=== PATIENT | female | born 1960 | race Caucasian/White ===

== ENCOUNTER → 2018-02-19 12:38 | Outpatient (CLI) | payer OTHER, MEDICAID, SELFPAY ==
--- NOTE | 2018-02-19 | DI.RAD.S_ITS ---
PROCEDURE: XR FOOT LT MIN 3V INDICATIONS: LEFT FOOT PAIN, ENLARGED BONE NEAR ANKLE TECHNIQUE: 3 views of the foot were acquired. COMPARISON: None. FINDINGS: Bones: No fractures or dislocations. No suspicious bony lesions. Hammertoe deformities. Medial first sesamoid is bipartite. Joint spaces appear maintained. Plantar spur os calcis. Soft tissues: No tibiotalar joint effusion. Achilles tendon appears normal. IMPRESSION: 1. No acute bony abnormality. 2. Plantar bone spur posterior calcaneus. Dictated by: Lyle Murray M.D. on 02/19/2018 at 13:22 Approved by: Lyle Murray M.D. on 02/19/2018 at 13:24
== END ==
PROVIDERS: PCP Nurse Practitioner Family; Visit Provider Nurse Practitioner Family
DX: M79.672 Pain in left foot (principal); M77.32 Calcaneal spur, left foot
CPT/HCPCS: 73630

== ENCOUNTER 2021-03-05 09:23 | Day surgery (SDC) | payer OTHER, MEDICAID, SELFPAY ==
[2021-03-05 09:32] VITALS: BP 132/84; PULSE 71; RESP 16; TEMP 36.5; O2SAT 99; BMI 25.0
[2021-03-05] MEDS: LACTATED RINGERS 1,000 ML 200 ML IV (09:40)
--- NOTE | 2021-03-05 10:38 | PM.HP.1 ---
History of Present Illness History of Present Illness Date Patient Seen: 03/05/21 Time Patient Seen: 10:38 Chief complaint: SDC Narrative: The patient presents for colorectal sreening. Previous colonoscopy 11 years ago reportedly normal. No personal or family history of colon cancer. On further history denies any recent gastrointestinal symptoms. No nausea, vomiting, abdominal pain, loss of appetite, unexplained weight loss, change in bowel habits, diarrhea, constipation, melena, hematochezia, or bright red blood per rectum. Patient History Medical History (Updated 03/05/21 @ 10:39 by Maicol Mares MD) Excessive daytime sleepiness Obstructive sleep apnea syndrome Snoring Family & Social History Family History Father Sleep apnea Insomnia Dementia Social History: household members none Tobacco & Substance use: Smoking Status Never smoker alcohol intake frequency a few times a week Substance Use Type does not use Meds Home Medications and Allergies Home Medications Medication Instructions Recorded Confirmed Type No Known Home Medications 05/28/20 03/05/21 History Allergies Allergy/AdvReac Type Severity Reaction Status Date / Time No Known Drug Allergies Allergy Verified 03/05/21 09:31 Review of Systems Review of Systems ROS: Yes All systems reviewed with the patient and are negative except as otherwise documented Exam Vital Signs (past 8 hours): - 03/05/21 09:32 Temperature 97.7 F Pulse Rate 71 Respiratory Rate 16 Blood Pressure 132/84 Pulse Oximetry 99 Oxygen Delivery Method Room Air Narrative Exam Narrative: GENERAL-well developed adult female, no acute distress HEENT-no scleral icterus, hearing intact NECK-no JVD, trachea midline CVS- regular rate, no peripheral edema RESP-unlabored respiratory effort, no audible wheezing GI-soft, nontender nondistended MSK-no cyanosis or clubbing, extremities without deformity SKIN-warm, dry NEURO-alert and oriented, no focal deficits PYSCH-Appropriate mood and affect Assessment & Plan Assessment and plan (1) Screening for colon cancer: Status: Acute Assessment & Plan narrative: The patient requires colorectal screening and colonoscopy is recommended. Technical details were discussed. Risks, benefits, alternatives explained. Risks including but not limited to myocardial infarction, aspiration, bleeding, pain, missed lesion, incomplete examination, need for further radiographic studies, colonic perforation, and need for major abdominal surgery were discussed. All questions were answered to their satisfaction, and they are in agreement with this plan.
[2021-03-05] MEDS: MIDAZOLAM 5 MG/5 ML VIAL IV (10:52)
[2021-03-05] MEDS: fentaNYL 250 MCG/5 ML INJ IV (10:52)
--- NOTE | 2021-03-05 11:15 | PM.OP.ENDO ---
Operative Date/Time/Diagnoses Date of procedure: 03/05/21 Time of procedure: 11:15 Pre-op diagnosis: Screening colonoscopy Post-op diagnosis: same Procedure & Clinicians Study performed: Colonoscopy Same procedure as scheduled: Yes Indications: Screening Surgeon: Maicol Mares Procedure Notes Procedure in detail: Medications: Conscious sedation using 5mg IV midazolam and 150 mcg IV of fentanyl The history and physical was performed/updated and the patient is ASA class is 1. The procedure was discussed in detail with the patient. Potential risks complications including infection, bleeding, missed diagnosis, perforation, need for surgery, and were explained. Their questions were answered and informed consent was obtained. Patient was brought to the procedure room and placed standard monitoring equipment. The patient's vital signs were monitored continuously throughout the entire procedure. Prior to starting time-out was performed. The patient was placed in the left lateral recumbent position. Procedural sedation was administered. Examination began with a thorough inspection of the perianal area there was no evidence of fissures, fistulae, external hemorrhoids or cutaneous malignancy. The colonoscopy scope was then placed into the anal canal and was advanced to the cecum, which was identified by the ileocecal valve, the appendiceal orifice and the confluence of the taenia. The scope was then slowly withdrawn examining colon thoroughly in all directions, irrigating it of any residual stool. 1. No masses or polyps 2. Tortuous colon The patient tolerated the procedure well. They will be discharged once criteria are met. The prep was of good/excellent quality. The withdrawl time was 7 minutes. The sedation time was 30 minutes. Specimen(s): none sent Complications: none Impression: Normal colonoscopy Post-procedure Recommendations: Colonscopy in 10 years
[2021-03-05 11:16] VITALS: BP 122/73; PULSE 60; RESP 95; TEMP 36.2
[2021-03-05 11:21] VITALS: BP 118/71; PULSE 60; RESP 10; O2SAT 96
[2021-03-05 11:26] VITALS: BP 118/70; PULSE 59; RESP 10; O2SAT 96
[2021-03-05 11:39] VITALS: BP 122/70; PULSE 60; RESP 12; O2SAT 96
[2021-03-05 11:55] VITALS: BP 122/70; PULSE 65; RESP 16; TEMP 36.6; O2SAT 97
== END 2021-03-05 11:56 | disposition home or self-care (01) ==
PROVIDERS: PCP Internal Medicine; Referring Provider Surgery; Visit Provider Surgery
PROC: 0DJD8ZZ Inspection of Lower Intestinal Tract, Via Natural or Artificial Opening Endoscopic (ICD-10-PCS; CPT 45378; principal; 2021-03-05 10:00)
DX: Z12.11 Encounter for screening for malignant neoplasm of colon (principal); G47.33 Obstructive sleep apnea (adult) (pediatric)
CPT/HCPCS: 45378; 99152; 99153; J2250; J3010

== ENCOUNTER 2021-09-14 13:00 | Outpatient (RCR) | payer OTHER, MEDICAID, SELFPAY ==
--- NOTE | 2021-08-05 11:19 | PT.OIE ---
Current Diagnoses Adhesive capsulitis of left shoulder (08/05/21) Impingement syndrome of left shoulder (08/05/21) Past Medical History (Last Updated 09/02/20 @ 22:19 by ALEXUS Zarate) Excessive daytime sleepiness Obstructive sleep apnea syndrome Snoring Visit Care Team Role Provider Type ALEXUS Kurtz Attending Provider Advanced Accessibility Lift Technician Family Provider Primary Care Provider Referring Provider Specialty: Family Practice Address: [address] [place] [address], [facility] [place], [facility] Email: [email or web address] Physical Therapy Initial Evaluation PT-OP-A Visit Information Start: 08/03/21 07:46 Freq: Status: Active Protocol: Document 08/05/21 09:46 MB (Rec: 08/05/21 10:32 MB [id number]) Out-Patient Physical Therapy Visit Information Visit Information Visit Type Initial Evaluation Visit Note [place] Medicaid 24 combined PT/OT per year Pt goes by Nan Visit Start Time 09:46 Visit Stop Time 10:30 Total Visit Minutes 44 Visit Number 1 Evaluation Information Evaluation Date 08/05/21 PT-OP-B Current Condition Start: 08/03/21 07:46 Freq: Status: Active Protocol: Document 08/05/21 09:46 MB (Rec: 08/05/21 10:32 MB [id number]) Current Condition History of Current Condition Onset Date End of May, beginning of June 2021 Current Complaints Left-sided shoulder pain History of Current Condition Pt states that she is not in the same amount of suffering she was in 10 times ago. She is taking ibuprofen. She is performing wall crawls and pendulums given to her by Rozina Kelly. In late May, pt moved from [place] to [place]. She got a new mattress. Her left shoulder hurt when she was lying on her left side and when she was driving. She had a lot of pain in June. She states it was inside the back of her left shoulder and also in the front. Pt reports 2/10 pain in the triceps area, 6/ 10 superior posterior shoulder pain, 7/10 intrascapular pain and 6/10 midline pain. She is taking ibuprofen 2x/day . She takes 400 mg in the morning and 400 mg before she goes to bed. She has been doing that for 10 days. PMH includes headaches 3-4x/wk , she wakes up with headaches, abdominal surgery to remove ovary, vericose veins. She had a low sleep apnea test and was given a CPAP machine. She didn't notice a change in the headaches and so she stopped using it. The place where she moved is furnished and it is a firm pillow top. She reports the most pain when sleeping at night. She is sleeping on both sides and on her back. She has a regular pillow under her head. She has tried doubling it up. She has a small pillow between her knees. Prior Treatments and Tests No PT for this issue. PT in 1997 d/t severe back pain. It was helpful. Treatment Goals Patient/Caregiver Goals To figure out where the strain is and how to loosen it PT-OP-C Subjective Start: 08/03/21 07:46 Freq: Status: Active Protocol: Document 08/05/21 09:46 MB (Rec: 08/05/21 10:32 MB [id number]) OP-PT Subjective Patient Comments Patient Comments See history of current condition Patient Reported Progress Improving PT-OP-J Posture/Palpation/Skin Start: 08/03/21 07:46 Freq: Status: Active Protocol: Document 08/05/21 09:46 MB (Rec: 08/05/21 11:18 MB [id number]) Posture Evaluation Comments Posture Comments Standing posture in socks: pt states she is right handed. Right pupil is more dilated than the left, right shoulder is more anterior and IR positioned compared to the left, neck rests in 5 deg right SB, decreasd cervical lordosis, mild Dowager's hump and then decreased thoracic kyphosis, mildly increased lumbar lordosis and anterior tilt pelvis, left iliac crest is higher than the right, overpronation left foot and left leg presents functionally longer than the left in standing today. PT-OP-K Range of Motion Start: 08/03/21 07:46 Freq: Status: Active Protocol: Document 08/05/21 09:46 MB (Rec: 08/05/21 11:18 MB [id number]) Cervical Spine Range of Motion Cervical Spine Active Testing Position Standing Flexion 35 Extension 35 Rotation Left 50 Rotation Right 45 Lateral Flexion Left 10 Lateral Flexion Right 10 Shoulder Goniometric Range of Motion Shoulder Left Shoulder ROM WFL No Testing Position Standing Flexion 161 Abduction 165 Internal Rotation Behind Back (text) Does not reach lower scapular area Comments PROM in supine with shoulder in : ER normal and IR to 45 deg with pt reporting pain with moving arm from ER into IR. Pt then does so actively and calls out in pain. She cannot localize pain and it does feel in the joint Right Shoulder ROM WFL Yes Testing Position Standing Flexion 167 Abduction 165 Internal Rotation Behind Back (text) To upper scapular area Comments PROM in supine with shoulder in : normal PT-OP-M Strength Start: 08/03/21 07:46 Freq: Status: Active Protocol: Document 08/05/21 09:46 MB (Rec: 08/05/21 11:18 MB [id number]) Shoulder Strength Shoulder Manual Muscle Testing Left Flexion 5 Normal Abduction (C5) 4 Good External Rotation 4 Good Internal Rotation 5 Normal Comments Pain with resisted abduction today Right Flexion 5 Normal Abduction (C5) 5 Normal External Rotation 5 Normal Internal Rotation 5 Normal Elbow/Forearm Strength Elbow and Forearm Manual Muscle Testing Left Flexion (C6) 5 Normal Extension (C7) 5 Normal Pronation 5 Normal Supination 5 Normal Right Flexion (C6) 5 Normal Extension (C7) 5 Normal Pronation 5 Normal Supination 5 Normal PT-OP-Q Treatments Start: 08/03/21 07:46 Freq: Status: Active Protocol: Document 08/05/21 09:46 MB (Rec: 08/05/21 10:41 MB [id number]) Self-Care/Home Management Treatment Education Patient Education Body Mechanics,Joint Protection,Pain Management, Posture Other Education Proper sleeping position with towel roll support under her neck and pillow support between arms and between legs, use of frozen peas PT-OP-T Assessment and Plan Start: 08/03/21 07:46 Freq: Status: Active Protocol: Document 08/05/21 09:46 MB (Rec: 08/05/21 11:18 MB [id number]) Physical Therapy Assessment Rehab Potential Rehabilitation Potential Fair Evaluation Complexity Number of Personal Factors/Comorbidities 1-2 Number of Body Systems Impaired 1-2 Clinical Presentation at Evaluation Evolving Impairments Impairments Activity Tolerance,Functional Activities,Pain,Posture,ROM, Soft Tissue Mobility,Strength Other Impairments Personal factors include that pt lives alone and drives herself to therapy and she has a new mattresss in her new furnished apartment and her pain started when she moved into her new place. Body systems affected include musculoskeletal and neuromuscular. Her clinical presentation is evolving. Goals 3 Marshmallow Machine Operator Goal (LTG) Pt will perform progressive HEP with I including postural, range, pelvic alignment, intrascapular, core and shoulder strengthening, breathing and other self-care exercises to improve pain and function by 10/06/21. LTG Duration 8 weeks 2 Marshmallow Machine Operator Goal (LTG) Pt will report a 75% improvement in sleeping to improve restorative rest by 10/06/21. LTG Duration 8 weeks 1 Impairment QuickDASH score reflects 50% impairment on eval Marshmallow Machine Operator Goal (LTG) Pt will present with an improved QuickDASH score to reflect no more than 20% impairment and improved function by 10/06/21. LTG Duration 8 weeks Assessment Summary Assessment Pt is a 61 y/o female reporting pain in her left shoulder that started after moving to a new apartment with a furnished bed the end of May. She has a lot of pain at night when sleeping and likes to sleep on her left side. Did initiate sleeping positioning education on evaluation today. Pt presents with decreased active left shoulder flexion, abduction and IR, weakness and painful movement from ER position to IR position both actively and passively in supine. PT is suspicious about a rotator cuff injury including the subscapularis. Will initiate PT and see if interventions improve her symptoms, pain and function or if need to make recommendation for diagnostics and an orthopedic consult. She presents with postural changes that affect her shoulder function as well and will include some postural exercises to help address this . Physical Therapy Plan Frequency and Duration Frequency of Treatment 2x/Week Duration of Treatment 8 weeks Plan of Care Start Date 08/05/21 Plan of Care End Date 10/06/21 Therapeutic Interventions Therapeutic Interventions Balance Training,Canalithic Repositioning,Home Exercise Program,Joint Mobilizations, Manual Therapy,Neuromuscular Re-education,Patient/Caregiver Education,Self-Care/Home Management,Soft Tissue Mobilization,Taping, Therapeutic Activities, Therapeutic Exercises Modalities Cold Pack/Ice Massage,Hot Packs Next Visit Focus/Plan Next Note Type Treatment Note Next Visit Plan Pelvic realignment exercises, racquet ball massage for intrascapular area, infraspinatus and upper traps first treatment, initiate manual work. In successive treatments: thoracic rotation in sitting with breathing, pect stretch and start UBE, cervical rotation with head nods. Eventually progress core, lying on pool noodle, core progression With primary PT: Kaden , Tan breathing
--- NOTE | 2021-08-05 11:19 | PT.OPPOC ---
Physical, Occupational & Speech Therapy At [facility] Current Diagnoses Adhesive capsulitis of left shoulder (08/05/21) Impingement syndrome of left shoulder (08/05/21) Visit Care Team Role Provider Type ALEXUS Kurtz Attending Provider Advanced Paste Mixing Supervisor Family Provider Primary Care Provider Referring Provider Specialty: Family Practice Address: [address] [place] [address], [facility] [place], [facility] Email: Plan Of Care PT-OP-T Assessment and Plan Start: 08/03/21 07:46 Freq: Status: Active Protocol: Document 08/05/21 09:46 MB (Rec: 08/05/21 11:18 MB [id number]) Physical Therapy Assessment Rehab Potential Rehabilitation Potential Fair Evaluation Complexity Number of Personal Factors/Comorbidities 1-2 Number of Body Systems Impaired 1-2 Clinical Presentation at Evaluation Evolving Impairments Impairments Activity Tolerance,Functional Activities,Pain,Posture,ROM, Soft Tissue Mobility,Strength Other Impairments Personal factors include that pt lives alone and drives herself to therapy and she has a new mattresss in her new furnished apartment and her pain started when she moved into her new place. Body systems affected include musculoskeletal and neuromuscular. Her clinical presentation is evolving. Goals 3 Buttermaker Helper Goal (LTG) Pt will perform progressive HEP with I including postural, range, pelvic alignment, intrascapular, core and shoulder strengthening, breathing and other self-care exercises to improve pain and function by 10/06/21. LTG Duration 8 weeks 2 Buttermaker Helper Goal (LTG) Pt will report a 75% improvement in sleeping to improve restorative rest by 10/06/21. LTG Duration 8 weeks 1 Impairment QuickDASH score reflects 50% impairment on eval Buttermaker Helper Goal (LTG) Pt will present with an improved QuickDASH score to reflect no more than 20% impairment and improved function by 10/06/21. LTG Duration 8 weeks Assessment Summary Assessment Pt is a 61 y/o female reporting pain in her left shoulder that started after moving to a new apartment with a furnished bed the end of May. She has a lot of pain at night when sleeping and likes to sleep on her left side. Did initiate sleeping positioning education on evaluation today. Pt presents with decreased active left shoulder flexion, abduction and IR, weakness and painful movement from ER position to IR position both actively and passively in supine. PT is suspicious about a rotator cuff injury including the subscapularis. Will initiate PT and see if interventions improve her symptoms, pain and function or if need to make recommendation for diagnostics and an orthopedic consult. She presents with postural changes that affect her shoulder function as well and will include some postural exercises to help address this . Physical Therapy Plan Frequency and Duration Frequency of Treatment 2x/Week Duration of Treatment 8 weeks Plan of Care Start Date 08/05/21 Plan of Care End Date 10/06/21 Therapeutic Interventions Therapeutic Interventions Balance Training,Canalithic Repositioning,Home Exercise Program,Joint Mobilizations, Manual Therapy,Neuromuscular Re-education,Patient/Caregiver Education,Self-Care/Home Management,Soft Tissue Mobilization,Taping, Therapeutic Activities, Therapeutic Exercises Modalities Cold Pack/Ice Massage,Hot Packs Next Visit Focus/Plan Next Note Type Treatment Note Next Visit Plan Pelvic realignment exercises, racquet ball massage for intrascapular area, infraspinatus and upper traps first treatment, initiate manual work. In successive treatments: thoracic rotation in sitting with breathing, pect stretch and start UBE, cervical rotation with head nods. Eventually progress core, lying on pool noodle, core progression With primary PT: Tan Alfonso breathing Plan of Care Plan of Care Start Date 08/05/21 Plan of Care End Date 10/06/21 Electronically Signed by: Nuris Hinson PT 08/05/21 [id number] Please Sign and Return: I have reviewed this Plan of Care and certify that the skilled therapy services above are required to meet the patient?s needs. Physician Signature Date Printed Name and Credentials Clinical Instructor Signature Printed Name and Credentials
--- NOTE | 2021-08-10 08:12 | PT.OTN ---
Current Diagnoses Adhesive capsulitis of left shoulder (08/10/21) Impingement syndrome of left shoulder (08/10/21) Physical Therapy Treatment Note PT-OP-A Visit Information Start: 08/03/21 07:46 Freq: Status: Active Protocol: Document 08/10/21 07:32 MB (Rec: 08/10/21 08:06 MB [id number]) Out-Patient Physical Therapy Visit Information Visit Information Visit Type Treatment Note Visit Note [place] [employer] 24 combined PT/OT per year Pt goes by Nan Visit Start Time 07:32 Visit Stop Time 08:12 Total Visit Minutes 40 Visit Number 2 Evaluation Information Evaluation Date 08/05/21 PT-OP-B Current Condition Start: 08/03/21 07:46 Freq: Status: Active Protocol: Document 08/05/21 09:46 MB (Rec: 08/05/21 10:32 MB [id number]) Current Condition History of Current Condition Onset Date End of May, beginning of June 2021 Current Complaints Left-sided shoulder pain History of Current Condition Pt states that she is not in the same amount of suffering she was in 10 times ago. She is taking ibuprofen. She is performing wall crawls and pendulums given to her by Rozina Kelly. In late May, pt moved from [place] to [place]. She got a new mattress. Her left shoulder hurt when she was lying on her left side and when she was driving. She had a lot of pain in June. She states it was inside the back of her left shoulder and also in the front. Pt reports 2/10 pain in the triceps area, 6/ 10 superior posterior shoulder pain, 7/10 intrascapular pain and 6/10 midline pain. She is taking ibuprofen 2x/day . She takes 400 mg in the morning and 400 mg before she goes to bed. She has been doing that for 10 days. PMH includes headaches 3-4x/wk , she wakes up with headaches, abdominal surgery to remove ovary, vericose veins. She had a low sleep apnea test and was given a CPAP machine. She didn't notice a change in the headaches and so she stopped using it. The place where she moved is furnished and it is a firm pillow top. She reports the most pain when sleeping at night. She is sleeping on both sides and on her back. She has a regular pillow under her head. She has tried doubling it up. She has a small pillow between her knees. Prior Treatments and Tests No PT for this issue. PT in 1997 d/t severe back pain. It was helpful. Treatment Goals Patient/Caregiver Goals To figure out where the strain is and how to loosen it PT-OP-C Subjective Start: 08/03/21 07:46 Freq: Status: Active Protocol: Document 08/10/21 07:32 MB (Rec: 08/10/21 08:06 MB [id number]) OP-PT Subjective Patient Comments Patient Comments Pt states that she went on a little vacation to [place]. She used the towel roll roll for neck support and that was helpful. She also tried the pillows between the arms and legs and they ended up on the floor. PT-OP-J Posture/Palpation/Skin Start: 08/03/21 07:46 Freq: Status: Active Protocol: Document 08/05/21 09:46 MB (Rec: 08/05/21 11:18 MB [id number]) Posture Evaluation Comments Posture Comments Standing posture in socks: pt states she is right handed. Right pupil is more dilated than the left, right shoulder is more anterior and IR positioned compared to the left, neck rests in 5 deg right SB, decreasd cervical lordosis, mild Dowager's hump and then decreased thoracic kyphosis, mildly increased lumbar lordosis and anterior tilt pelvis, left iliac crest is higher than the right, overpronation left foot and left leg presents functionally longer than the left in standing today. PT-OP-K Range of Motion Start: 08/03/21 07:46 Freq: Status: Active Protocol: Document 08/05/21 09:46 MB (Rec: 08/05/21 11:18 MB [id number]) Cervical Spine Range of Motion Cervical Spine Active Testing Position Standing Flexion 35 Extension 35 Rotation Left 50 Rotation Right 45 Lateral Flexion Left 10 Lateral Flexion Right 10 Shoulder Goniometric Range of Motion Shoulder Left Shoulder ROM WFL No Testing Position Standing Flexion 161 Abduction 165 Internal Rotation Behind Back (text) Does not reach lower scapular area Comments PROM in supine with shoulder in 90/90: ER normal and IR to 45 deg with pt reporting pain with moving arm from ER into IR. Pt then does so actively and calls out in pain. She cannot localize pain and it does feel in the joint Right Shoulder ROM WFL Yes Testing Position Standing Flexion 167 Abduction 165 Internal Rotation Behind Back (text) To upper scapular area Comments PROM in supine with shoulder in 90/90: normal PT-OP-M Strength Start: 08/03/21 07:46 Freq: Status: Active Protocol: Document 08/05/21 09:46 MB (Rec: 08/05/21 11:18 MB [id number]) Shoulder Strength Shoulder Manual Muscle Testing Left Flexion 5 Normal Abduction (C5) 4 Good External Rotation 4 Good Internal Rotation 5 Normal Comments Pain with resisted abduction today Right Flexion 5 Normal Abduction (C5) 5 Normal External Rotation 5 Normal Internal Rotation 5 Normal Elbow/Forearm Strength Elbow and Forearm Manual Muscle Testing Left Flexion (C6) 5 Normal Extension (C7) 5 Normal Pronation 5 Normal Supination 5 Normal Right Flexion (C6) 5 Normal Extension (C7) 5 Normal Pronation 5 Normal Supination 5 Normal PT-OP-Q Treatments Start: 08/03/21 07:46 Freq: Status: Active Protocol: Document 08/10/21 07:32 MB (Rec: 08/10/21 08:06 MB [id number]) Therapeutic Exercises Supine Exercises Pelvic realignment exercises Side bilateral Equipment Used Towel roll for last exercise to help with reach Comments 5 reps, 3 sec hold all exercises Standing Exercises Racquet ball massage and MWM Side bilateral Comments MWM upper traps and infraspinatus and STM intrascapular area, rib mobs PT-OP-T Assessment and Plan Start: 08/03/21 07:46 Freq: Status: Active Protocol: Document 08/10/21 07:32 MB (Rec: 08/10/21 08:06 MB [id number]) Physical Therapy Assessment Rehab Potential Rehabilitation Potential Fair Evaluation Complexity Number of Personal Factors/Comorbidities 1-2 Number of Body Systems Impaired 1-2 Clinical Presentation at Evaluation Evolving Impairments Impairments Activity Tolerance,Functional Activities,Pain,Posture,ROM, Soft Tissue Mobility,Strength Other Impairments Personal factors include that pt lives alone and drives herself to therapy and she has a new mattresss in her new furnished apartment and her pain started when she moved into her new place. Body systems affected include musculoskeletal and neuromuscular. Her clinical presentation is evolving. Goals 3 Drum Maker Goal (LTG) Pt will perform progressive HEP with I including postural, range, pelvic alignment, intrascapular, core and shoulder strengthening, breathing and other self-care exercises to improve pain and function by 10/06/21. LTG Duration 8 weeks 2 Chcf Goal (LTG) Pt will report a 75% improvement in sleeping to improve restorative rest by 10/06/21. LTG Duration 8 weeks 1 Impairment QuickDASH score reflects 50% impairment on eval Chcf Goal (LTG) Pt will present with an improved QuickDASH score to reflect no more than 20% impairment and improved function by 10/06/21. LTG Duration 8 weeks Assessment Summary Assessment Initiated pelvic realignment and self-massage exercises today and pt responds and tolerates well. Physical Therapy Plan Frequency and Duration Frequency of Treatment 2x/Week Duration of Treatment 8 weeks Plan of Care Start Date 08/05/21 Plan of Care End Date 10/06/21 Therapeutic Interventions Therapeutic Interventions Balance Training,Canalithic Repositioning,Home Exercise Program,Joint Mobilizations, Manual Therapy,Neuromuscular Re-education,Patient/Caregiver Education,Self-Care/Home Management,Soft Tissue Mobilization,Taping, Therapeutic Activities, Therapeutic Exercises Modalities Cold Pack/Ice Massage,Hot Packs Next Visit Focus/Plan Next Note Type Treatment Note Next Visit Plan Review exercises as needed. Initiate manual work. In successive treatments: thoracic rotation in sitting with breathing, pect stretch and start UBE, cervical rotation with head nods. Eventually progress core, lying on pool noodle, core progression With primary PT: Counterstrain , Buteyko breathing
--- NOTE | 2021-08-13 09:50 | PT.OTN ---
Current Diagnoses Adhesive capsulitis of left shoulder (08/13/21) Impingement syndrome of left shoulder (08/13/21) Physical Therapy Treatment Note PT-OP-A Visit Information Start: 08/03/21 07:46 Freq: Status: Active Protocol: Document 08/13/21 09:05 SP (Rec: 08/13/21 09:52 SP [id number]) Out-Patient Physical Therapy Visit Information Visit Information Visit Type Treatment Note Visit Note [place] Medicaid 24 combined PT/OT per year Pt goes by Nan Visit Start Time 09:05 Visit Stop Time 09:50 Total Visit Minutes 45 Visit Number 3 Number of FLIGHT INSPECTOR Visits 1 Evaluation Information Evaluation Date 08/05/21 PT-OP-B Current Condition Start: 08/03/21 07:46 Freq: Status: Active Protocol: Document 08/05/21 09:46 MB (Rec: 08/05/21 10:32 MB [id number]) Current Condition History of Current Condition Onset Date End may, beginning of June 2021 Current Complaints Left-sided shoulder pain History of Current Condition Pt states that she is not in the same amount of suffering she was in 10 times ago. She is taking ibuprofen. She is performing wall crawls and pendulums given to her by Rozina Kelly. In late May, pt moved from [place] to [place]. She got a new mattress. Her left shoulder hurt when she was lying on her left side and when she was driving. She had a lot of pain in June. She states it was inside the back of her left shoulder and also in the front. Pt reports 2/10 pain in the triceps area, 6/ 10 superior posterior shoulder pain, 7/10 intrascapular pain and 6/10 midline pain. She is taking ibuprofen 2x/day . She takes 400 mg in the morning and 400 mg before she goes to bed. She has been doing that for 10 days. PMH includes headaches 3-4x/wk , she wakes up with headaches, abdominal surgery to remove ovary, vericose veins. She had a low sleep apnea test and was given a CPAP machine. She didn't notice a change in the headaches and so she stopped using it. The place where she moved is furnished and it is a firm pillow top. She reports the most pain when sleeping at night. She is sleeping on both sides and on her back. She has a regular pillow under her head. She has tried doubling it up. She has a small pillow between her knees. Prior Treatments and Tests No PT for this issue. PT in 1997 d/t severe back pain. It was helpful. Treatment Goals Patient/Caregiver Goals To figure out where the strain is and how to loosen it PT-OP-C Subjective Start: 08/03/21 07:46 Freq: Status: Active Protocol: Document 08/13/21 09:05 SP (Rec: 08/13/21 09:52 SP [id number]) OP-PT Subjective Patient Comments Patient Comments Pt states didn't bring folder ex, was gone since last tx helping daughter unpack house just moved in, sleeping on different mattress and unable to get racquetball but did get kids kick ball for [employer]Ex. Hasn 't been able to do any ex since last tx due to busy life and wanted to spend this tx to review. Patient Reported Progress Same PT-OP-J Posture/Palpation/Skin Start: 08/03/21 07:46 Freq: Status: Active Protocol: Document 08/05/21 09:46 MB (Rec: 08/05/21 11:18 MB [id number]) Posture Evaluation Comments Posture Comments Standing posture in socks: pt states she is right handed. Right pupil is more dilated than the left, right shoulder is more anterior and IR positioned compared to the left, neck rests in 5 deg right SB, decreasd cervical lordosis, mild Dowager's hump and then decreased thoracic kyphosis, mildly increased lumbar lordosis and anterior tilt pelvis, left iliac crest is higher than the right, overpronation left foot and left leg presents functionally longer than the left in standing today. PT-OP-K Range of Motion Start: 08/03/21 07:46 Freq: Status: Active Protocol: Document 08/05/21 09:46 MB (Rec: 08/05/21 11:18 MB [id number]) Cervical Spine Range of Motion Cervical Spine Active Testing Position Standing Flexion 35 Extension 35 Rotation Left 50 Rotation Right 45 Lateral Flexion Left 10 Lateral Flexion Right 10 Shoulder Goniometric Range of Motion Shoulder Left Shoulder ROM WFL No Testing Position Standing Flexion 161 Abduction 165 Internal Rotation Behind Back (text) Does not reach lower scapular area Comments PROM in supine with shoulder in 90/90: ER normal and IR to 45 deg with pt reporting pain with moving arm from ER into IR. Pt then does so actively and calls out in pain. She cannot localize pain and it does feel in the joint Right Shoulder ROM WFL Yes Testing Position Standing Flexion 167 Abduction 165 Internal Rotation Behind Back (text) To upper scapular area Comments PROM in supine with shoulder in : normal PT-OP-M Strength Start: 08/03/21 07:46 Freq: Status: Active Protocol: Document 08/05/21 09:46 MB (Rec: 08/05/21 11:18 MB [id number]) Shoulder Strength Shoulder Manual Muscle Testing Left Flexion 5 Normal Abduction (C5) 4 Good External Rotation 4 Good Internal Rotation 5 Normal Comments Pain with resisted abduction today Right Flexion 5 Normal Abduction (C5) 5 Normal External Rotation 5 Normal Internal Rotation 5 Normal Elbow/Forearm Strength Elbow and Forearm Manual Muscle Testing Left Flexion (C6) 5 Normal Extension (C7) 5 Normal Pronation 5 Normal Supination 5 Normal Right Flexion (C6) 5 Normal Extension (C7) 5 Normal Pronation 5 Normal Supination 5 Normal PT-OP-Q Treatments Start: 08/03/21 07:46 Freq: Status: Active Protocol: Document 08/13/21 09:05 SP (Rec: 08/13/21 09:52 SP [id number]) Therapeutic Exercises Supine Exercises pec stretch Supine Exercise Name added to [facility] Side bilateral Equipment Used on table (progress noodle next tx) Reps/Minutes 30 Pelvic realignment exercises Supine Exercise Name reviewed HEP Side bilateral Equipment Used Towel roll for last exercise to help with reach Reps/Minutes 5 reps, 3 sec hold all exercises Comments cued gentle slow meet resistance. Sitting Exercises scap retraction Sitting Exercise Name added to HEP Resistance AROM Reps/Minutes 10 sec hold x10 Comments good feedback response, EO chair tall posture chest lift, neutral CS CS rotation w/ nods Sitting Exercise Name added to HEP Side bilateral Resistance AROM Reps/Minutes x5 Comments slow gentle pain free ROM, better to R than L, tight on L side turning L Standing Exercises Racquet ball massage and MWM Standing Exercise Name reviewed Side bilateral Comments MWM upper traps and infraspinatus and STM intrascapular area Manual Therapy Treatment Soft Tissue Mobilization STMs Body Location UT, rhomboids, lower traps, infraspinatus Mobilization Type Strumming,Sustained Pressure Intensity/Depth Moderate Body Position Sidelying Comments good feedback, sustained pressure more welcoming than strumming w/ breath Instruced self STMs ball on wall. Joint Mobilizations scapulthoracic Joint L Direction retraction / depression Grade II Body Position Sidelying Comments good feedback, cues for PT-OP-T Assessment and Plan Start: 08/03/21 07:46 Freq: Status: Active Protocol: Document 08/13/21 09:05 SP (Rec: 08/13/21 09:52 SP [id number]) Physical Therapy Assessment Goals 3 Halfway Goal (LTG) Pt will perform progressive HEP with I including postural, range, pelvic alignment, intrascapular, core and shoulder strengthening, breathing and other self-care exercises to improve pain and function by 10/06/21. LTG Duration 8 weeks 2 Halfway Goal (LTG) Pt will report a 75% improvement in sleeping to improve restorative rest by 10/06/21. LTG Duration 8 weeks 1 Impairment QuickDASH score reflects 50% impairment on eval Halfway Goal (LTG) Pt will present with an improved QuickDASH score to reflect no more than 20% impairment and improved function by 10/06/21. LTG Duration 8 weeks Assessment Summary Assessment Pt responded well to manual and understanding performance of self STMs at home with ball will get later today. HEP review with cues for set up and proper form better understanding. Knows to bring HO next tx to write cues given today for better performance. No adverse affectst to added pec stretch, scap retraction, CS rotation w/ nods and self STMs, found very helpful today to continue. Physical Therapy Plan Frequency and Duration Frequency of Treatment 2x/Week Duration of Treatment 8 weeks Plan of Care Start Date 08/05/21 Plan of Care End Date 10/06/21 Therapeutic Interventions Therapeutic Interventions Balance Training,Canalithic Repositioning,Home Exercise Program,Joint Mobilizations, Manual Therapy,Neuromuscular Re-education,Patient/Caregiver Education,Self-Care/Home Management,Soft Tissue Mobilization,Taping, Therapeutic Activities, Therapeutic Exercises Modalities Cold Pack/Ice Massage,Hot Packs Next Visit Focus/Plan Next Note Type Treatment Note Next Visit Plan Assess repsonset to manual work, Review exercises as needed. POC: In successive treatments: add next thoracic rotation in sitting with breathing, start UBE. Eventually progress core, lying on pool noodle, core progression With primary PT: Counterstrain , Buteyko breathing
--- NOTE | 2021-08-19 12:55 | PT.OTN ---
Current Diagnoses Adhesive capsulitis of left shoulder (08/19/21) Impingement syndrome of left shoulder (08/19/21) Physical Therapy Treatment Note PT-OP-A Visit Information Start: 08/03/21 07:46 Freq: Status: Active Protocol: Document 08/19/21 12:17 MB (Rec: 08/19/21 12:55 MB [id number]) Out-Patient Physical Therapy Visit Information Visit Information Visit Type Treatment Note Visit Note [place] [employer] 24 combined PT/OT per year Pt goes by Nan Visit Start Time 12:17 Visit Stop Time 12:55 Total Visit Minutes 38 Visit Number 4 Number of OYSTER UNLOADER Visits 0 Evaluation Information Evaluation Date 08/05/21 PT-OP-B Current Condition Start: 08/03/21 07:46 Freq: Status: Active Protocol: Document 08/05/21 09:46 MB (Rec: 08/05/21 10:32 MB [id number]) Current Condition History of Current Condition Onset Date End may, beginning of June 2021 Current Complaints Left-sided shoulder pain History of Current Condition Pt states that she is not in the same amount of suffering she was in 10 times ago. She is taking ibuprofen. She is performing wall crawls and pendulums given to her by Roizna Kelly. In late May, pt moved from [place] to [place]. She got a new mattress. Her left shoulder hurt when she was lying on her left side and when she was driving. She had a lot of pain in June. She states it was inside the back of her left shoulder and also in the front. Pt reports 2/10 pain in the triceps area, 6/ 10 superior posterior shoulder pain, 7/10 intrascapular pain and 6/10 midline pain. She is taking ibuprofen 2x/day . She takes 400 mg in the morning and 400 mg before she goes to bed. She has been doing that for 10 days. PMH includes headaches 3-4x/wk , she wakes up with headaches, abdominal surgery to remove ovary, vericose veins. She had a low sleep apnea test and was given a CPAP machine. She didn't notice a change in the headaches and so she stopped using it. The place where she moved is furnished and it is a firm pillow top. She reports the most pain when sleeping at night. She is sleeping on both sides and on her back. She has a regular pillow under her head. She has tried doubling it up. She has a small pillow between her knees. Prior Treatments and Tests No PT for this issue. PT in 1997 d/t severe back pain. It was helpful. Treatment Goals Patient/Caregiver Goals To figure out where the strain is and how to loosen it PT-OP-C Subjective Start: 08/03/21 07:46 Freq: Status: Active Protocol: Document 08/19/21 12:17 MB (Rec: 08/19/21 12:55 MB [id number]) OP-PT Subjective Patient Comments Patient Comments Pt states that she is feeling a lot better. She is doing her exercises most days. PT-OP-J Posture/Palpation/Skin Start: 08/03/21 07:46 Freq: Status: Active Protocol: Document 08/05/21 09:46 MB (Rec: 08/05/21 11:18 MB [id number]) Posture Evaluation Comments Posture Comments Standing posture in socks: pt states she is right handed. Right pupil is more dilated than the left, right shoulder is more anterior and IR positioned compared to the left, neck rests in 5 deg right SB, decreasd cervical lordosis, mild Dowager's hump and then decreased thoracic kyphosis, mildly increased lumbar lordosis and anterior tilt pelvis, left iliac crest is higher than the right, overpronation left foot and left leg presents functionally longer than the left in standing today. PT-OP-K Range of Motion Start: 08/03/21 07:46 Freq: Status: Active Protocol: Document 08/05/21 09:46 MB (Rec: 08/05/21 11:18 MB [id number]) Cervical Spine Range of Motion Cervical Spine Active Testing Position Standing Flexion 35 Extension 35 Rotation Left 50 Rotation Right 45 Lateral Flexion Left 10 Lateral Flexion Right 10 Shoulder Goniometric Range of Motion Shoulder Left Shoulder ROM WFL No Testing Position Standing Flexion 161 Abduction 165 Internal Rotation Behind Back (text) Does not reach lower scapular area Comments PROM in supine with shoulder in 90/90: ER normal and IR to 45 deg with pt reporting pain with moving arm from ER into IR. Pt then does so actively and calls out in pain. She cannot localize pain and it does feel in the joint Right Shoulder ROM WFL Yes Testing Position Standing Flexion 167 Abduction 165 Internal Rotation Behind Back (text) To upper scapular area Comments PROM in supine with shoulder in 90/90: normal PT-OP-M Strength Start: 08/03/21 07:46 Freq: Status: Active Protocol: Document 08/05/21 09:46 MB (Rec: 08/05/21 11:18 MB [id number]) Shoulder Strength Shoulder Manual Muscle Testing Left Flexion 5 Normal Abduction (C5) 4 Good External Rotation 4 Good Internal Rotation 5 Normal Comments Pain with resisted abduction today Right Flexion 5 Normal Abduction (C5) 5 Normal External Rotation 5 Normal Internal Rotation 5 Normal Elbow/Forearm Strength Elbow and Forearm Manual Muscle Testing Left Flexion (C6) 5 Normal Extension (C7) 5 Normal Pronation 5 Normal Supination 5 Normal Right Flexion (C6) 5 Normal Extension (C7) 5 Normal Pronation 5 Normal Supination 5 Normal PT-OP-Q Treatments Start: 08/03/21 07:46 Freq: Status: Active Protocol: Document 08/19/21 12:17 MB (Rec: 08/19/21 12:55 MB [id number]) Cardio Equipment Upper Body Ergometer (UBE) Duration (Minutes) 10 Other 1' forward and 1' backward Therapeutic Exercises Supine Exercises Posterior capsule stretch Side left Equipment Used Purple pool noodle Comments More tension with the left compared to right, hold 20 sec Pool noodle exercises Supine Exercise Name Pt reports catching in front of left shoulder Side bilateral Equipment Used Purple pool noodle Comments 10 reps active flexion, Ts, 1/ 3 Xs pec stretch Side bilateral Equipment Used Purple pool noodle Comments 30 sec hold, cues to be easy on left shoulder Sitting Exercises scap retraction Side bilateral Comments 10 reps slowly, hold 3 sec CS rotation w/ nods Side bilateral Comments Rotate both sides, end-range nods PT-OP-T Assessment and Plan Start: 08/03/21 07:46 Freq: Status: Active Protocol: Document 08/19/21 12:17 MB (Rec: 08/19/21 12:55 MB [id number]) Physical Therapy Assessment Rehab Potential Rehabilitation Potential Fair Evaluation Complexity Number of Personal Factors/Comorbidities 1-2 Number of Body Systems Impaired 1-2 Clinical Presentation at Evaluation Evolving Impairments Impairments Activity Tolerance,Functional Activities,Pain,Posture,ROM, Soft Tissue Mobility,Strength Other Impairments Personal factors include that pt lives alone and drives herself to therapy and she has a new mattresss in her new furnished apartment and her pain started when she moved into her new place. Body systems affected include musculoskeletal and neuromuscular. Her clinical presentation is evolving. Goals 3 Residential Goal (LTG) Pt will perform progressive HEP with I including postural, range, pelvic alignment, intrascapular, core and shoulder strengthening, breathing and other self-care exercises to improve pain and function by 10/06/21. LTG Duration 8 weeks 2 Residential Goal (LTG) Pt will report a 75% improvement in sleeping to improve restorative rest by 10/06/21. LTG Duration 8 weeks 1 Impairment QuickDASH score reflects 50% impairment on eval Cheese Weigher Goal (LTG) Pt will present with an improved QuickDASH score to reflect no more than 20% impairment and improved function by 10/06/21. LTG Duration 8 weeks Assessment Summary Assessment Reviewed exercises today and encouraged pt in exercise performance and corrected form . Did not add Ts and 1/2 Xs or posterior capsule stretches to HEP d/t pt reporting strain in the front of left shoulder . Pt has some popping in the front of her left shoulder with horizontal abduction with mild rotation. May benefit from [place] protocol in future treatments. Physical Therapy Plan Frequency and Duration Frequency of Treatment 2x/Week Duration of Treatment 8 weeks Plan of Care Start Date 08/05/21 Plan of Care End Date 10/06/21 Therapeutic Interventions Therapeutic Interventions Balance Training,Canalithic Repositioning,Home Exercise Program,Joint Mobilizations, Manual Therapy,Neuromuscular Re-education,Patient/Caregiver Education,Self-Care/Home Management,Soft Tissue Mobilization,Taping, Therapeutic Activities, Therapeutic Exercises Modalities Cold Pack/Ice Massage,Hot Packs Next Visit Focus/Plan Next Note Type Treatment Note Next Visit Plan Con't UBE Thoracic rotation in sitting with breathing, progress core, yoga poses, lying on pool noodle strengthening with band , strengthening with band in standing as well for shoulder, scapula and multifidi With primary PT: Tan breathing, consider [place] protocol
--- NOTE | 2021-08-24 11:20 | PT.OTN ---
Current Diagnoses Adhesive capsulitis of left shoulder (08/24/21) Impingement syndrome of left shoulder (08/24/21) Physical Therapy Treatment Note PT-OP-A Visit Information Start: 08/03/21 07:46 Freq: Status: Active Protocol: Document 08/24/21 10:34 SP (Rec: 08/24/21 12:17 SP [id number]) Out-Patient Physical Therapy Visit Information Visit Information Visit Type Treatment Note Visit Note Pt 4 min late due to long line checking in. Visit Start Time 10:34 Visit Stop Time 11:20 Total Visit Minutes 46 Visit Number 5 Number of WOOL AND PELT GRADER Visits 1 Evaluation Information Evaluation Date 08/05/21 PT-OP-B Current Condition Start: 08/03/21 07:46 Freq: Status: Active Protocol: Document 08/05/21 09:46 MB (Rec: 08/05/21 10:32 MB [id number]) Current Condition History of Current Condition Onset Date End of May, beginning of June 2021 Current Complaints Left-sided shoulder pain History of Current Condition Pt states that she is not in the same amount of suffering she was in 10 times ago. She is taking ibuprofen. She is performing wall crawls and pendulums given to her by Rozina Kelly. In late May, pt moved from [place] to [place]. She got a new mattress. Her left shoulder hurt when she was lying on her left side and when she was driving. She had a lot of pain in June. She states it was inside the back of her left shoulder and also in the front. Pt reports 2/10 pain in the triceps area, 6/ 10 superior posterior shoulder pain, 7/10 intrascapular pain and 6/10 midline pain. She is taking ibuprofen 2x/day . She takes 400 mg in the morning and 400 mg before she goes to bed. She has been doing that for 10 days. PMH includes headaches 3-4x/wk , she wakes up with headaches, abdominal surgery to remove ovary, vericose veins. She had a low sleep apnea test and was given a CPAP machine. She didn't notice a change in the headaches and so she stopped using it. The place where she moved is furnished and it is a firm pillow top. She reports the most pain when sleeping at night. She is sleeping on both sides and on her back. She has a regular pillow under her head. She has tried doubling it up. She has a small pillow between her knees. Prior Treatments and Tests No PT for this issue. PT in 1997 d/t severe back pain. It was helpful. Treatment Goals Patient/Caregiver Goals To figure out where the strain is and how to loosen it PT-OP-C Subjective Start: 08/03/21 07:46 Freq: Status: Active Protocol: Document 08/24/21 10:34 SP (Rec: 08/24/21 12:17 SP [id number]) OP-PT Subjective Patient Comments Patient Comments Pt reproted doing her exercises over rolled up blanket/ towel, hasn't ordered noodle yet. Pt states still discomfort pain at upper posterior L shld. Rolling over ball on wall helps reduce tightness but hasn't gone away . PT-OP-J Posture/Palpation/Skin Start: 08/03/21 07:46 Freq: Status: Active Protocol: Document 08/05/21 09:46 MB (Rec: 08/05/21 11:18 MB [id number]) Posture Evaluation Comments Posture Comments Standing posture in socks: pt states she is right handed. Right pupil is more dilated than the left, right shoulder is more anterior and IR positioned compared to the left, neck rests in 5 deg right SB, decreasd cervical lordosis, mild Dowager's hump and then decreased thoracic kyphosis, mildly increased lumbar lordosis and anterior tilt pelvis, left iliac crest is higher than the right, overpronation left foot and left leg presents functionally longer than the left in standing today. PT-OP-K Range of Motion Start: 08/03/21 07:46 Freq: Status: Active Protocol: Document 08/05/21 09:46 MB (Rec: 08/05/21 11:18 MB [id number]) Cervical Spine Range of Motion Cervical Spine Active Testing Position Standing Flexion 35 Extension 35 Rotation Left 50 Rotation Right 45 Lateral Flexion Left 10 Lateral Flexion Right 10 Shoulder Goniometric Range of Motion Shoulder Left Shoulder ROM WFL No Testing Position Standing Flexion 161 Abduction 165 Internal Rotation Behind Back (text) Does not reach lower scapular area Comments PROM in supine with shoulder in 90/90: ER normal and IR to 45 deg with pt reporting pain with moving arm from ER into IR. Pt then does so actively and calls out in pain. She cannot localize pain and it does feel in the joint Right Shoulder ROM WFL Yes Testing Position Standing Flexion 167 Abduction 165 Internal Rotation Behind Back (text) To upper scapular area Comments PROM in supine with shoulder in 90/90: normal PT-OP-M Strength Start: 08/03/21 07:46 Freq: Status: Active Protocol: Document 08/05/21 09:46 MB (Rec: 08/05/21 11:18 MB [id number]) Shoulder Strength Shoulder Manual Muscle Testing Left Flexion 5 Normal Abduction (C5) 4 Good External Rotation 4 Good Internal Rotation 5 Normal Comments Pain with resisted abduction today Right Flexion 5 Normal Abduction (C5) 5 Normal External Rotation 5 Normal Internal Rotation 5 Normal Elbow/Forearm Strength Elbow and Forearm Manual Muscle Testing Left Flexion (C6) 5 Normal Extension (C7) 5 Normal Pronation 5 Normal Supination 5 Normal Right Flexion (C6) 5 Normal Extension (C7) 5 Normal Pronation 5 Normal Supination 5 Normal PT-OP-Q Treatments Start: 08/03/21 07:46 Freq: Status: Active Protocol: Document 08/24/21 10:34 SP (Rec: 08/24/21 12:17 SP [id number]) Cardio Equipment Upper Body Ergometer (UBE) Duration (Minutes) 7 RPM 70 Seat Position 10 Height 2.5 Other 1' forward and 1' backward- good painfree Therapeutic Exercises Supine Exercises Posterior capsule stretch Supine Exercise Name supine- discussed can do sit/ stand if better Side left Equipment Used pool noodle red> floor Reps/Minutes 10 s x3 Comments extra time angle form for good stretch, discussed stretch, painfree pos. Pool noodle exercises Supine Exercise Name Ts, 1/3 Xs Side bilateral Resistance AROM> TB #1 ( FF, Ts, 1/2 X reps tolerant), AROM Ws stationary stretch Equipment Used Purple pool noodle (red) Reps/Minutes 10 reps active flexion, Comments Reports little discomfort interscap when OH. pec stretch Supine Exercise Name HEP review Side bilateral Equipment Used red noodle (no purple available) Comments 30 sec hold, cues to be easy on left shoulder Pelvic realignment exercises Supine Exercise Name discussed not performed- cued not to do on noodle/rolled blanket Side bilateral Equipment Used Towel roll for last exercise to help with reach Reps/Minutes 5 reps, 3 sec hold all exercises Comments cued gentle slow meet resistance. Standing Exercises Racquet ball massage and MWM Standing Exercise Name MWM upper traps and infraspinatus and STM intrascapular area Side bilateral Reps/Minutes did get to this tx. Comments reviewed- discussion performs at home, helpful Manual Therapy Treatment Soft Tissue Mobilization STMs Body Location pec, infraspinatus distal, post deltoid Mobilization Type Strumming,Sustained Pressure Intensity/Depth Moderate Body Position Sidelying Comments decreased tightness to allow cross body stretch. discussed self STMs ball on wall. PT-OP-T Assessment and Plan Start: 08/03/21 07:46 Freq: Status: Active Protocol: Document 08/24/21 10:34 SP (Rec: 08/24/21 12:17 SP [id number]) Physical Therapy Assessment Goals 3 Train Reservation Clerk Goal (LTG) Pt will perform progressive HEP with I including postural, range, pelvic alignment, intrascapular, core and shoulder strengthening, breathing and other self-care exercises to improve pain and function by 10/06/21. LTG Duration 8 weeks 2 Mcfp Goal (LTG) Pt will report a 75% improvement in sleeping to improve restorative rest by 10/06/21. LTG Duration 8 weeks 1 Impairment QuickDASH score reflects 50% impairment on eval Train Reservation Clerk Goal (LTG) Pt will present with an improved QuickDASH score to reflect no more than 20% impairment and improved function by 10/06/21. LTG Duration 8 weeks Assessment Summary Assessment Initiated progression resisted supine HEP with no adverse affects over noodle. Discussed cross body stretch and form/ tolerance/ positioning, requested hand out for visual support if ok next tx, give HO printed. Extra time spend on understanding proper slow pacing form with modify reps if needed with all HEP. Provided hand out for pool noodle to allow recall carryover, improved self corrections and performance. Pt stated back little sore after majority of tx review over noodle. Went away after walked around. Physical Therapy Plan Frequency and Duration Frequency of Treatment 2x/Week Duration of Treatment 8 weeks Plan of Care Start Date 08/05/21 Plan of Care End Date 10/06/21 Therapeutic Interventions Therapeutic Interventions Balance Training,Canalithic Repositioning,Home Exercise Program,Joint Mobilizations, Manual Therapy,Neuromuscular Re-education,Patient/Caregiver Education,Self-Care/Home Management,Soft Tissue Mobilization,Taping, Therapeutic Activities, Therapeutic Exercises Modalities Cold Pack/Ice Massage,Hot Packs Next Visit Focus/Plan Next Note Type Treatment Note Next Visit Plan Assess response to initiated TB to supine noodle ex, cross body stretch (give hand out). POC: Con't UBE Thoracic rotation in sitting with breathing, progress core, yoga poses, strengthening with band in standing as well for shoulder, scapula and multifidi With primary PT: Butjaycobko breathing, consider [place] protocol
--- NOTE | 2021-08-26 08:57 | PT.OTN ---
Current Diagnoses Adhesive capsulitis of left shoulder (08/26/21) Impingement syndrome of left shoulder (08/26/21) Physical Therapy Treatment Note PT-OP-A Visit Information Start: 08/03/21 07:46 Freq: Status: Active Protocol: Document 08/26/21 08:16 MB (Rec: 08/26/21 08:57 MB [id number]) Out-Patient Physical Therapy Visit Information Visit Information Visit Type Treatment Note Visit Note Pt goes by Nan Visit Start Time 08:16 Visit Stop Time 08:56 Total Visit Minutes 40 Visit Number 6 Number of EXECUTIVE STAFF ASSISTANT Visits 0 Evaluation Information Evaluation Date 08/05/21 PT-OP-B Current Condition Start: 08/03/21 07:46 Freq: Status: Active Protocol: Document 08/05/21 09:46 MB (Rec: 08/05/21 10:32 MB [id number]) Current Condition History of Current Condition Onset Date End of May, beginning of June 2021 Current Complaints Left-sided shoulder pain History of Current Condition Pt states that she is not in the same amount of suffering she was in 10 times ago. She is taking ibuprofen. She is performing wall crawls and pendulums given to her by Rozina Kelly. In late May, pt moved from [place] to [place]. She got a new mattress. Her left shoulder hurt when she was lying on her left side and when she was driving. She had a lot of pain in June. She states it was inside the back of her left shoulder and also in the front. Pt reports 2/10 pain in the triceps area, 6/ 10 superior posterior shoulder pain, 7/10 intrascapular pain and 6/10 midline pain. She is taking ibuprofen 2x/day . She takes 400 mg in the morning and 400 mg before she goes to bed. She has been doing that for 10 days. PMH includes headaches 3-4x/wk , she wakes up with headaches, abdominal surgery to remove ovary, vericose veins. She had a low sleep apnea test and was given a CPAP machine. She didn't notice a change in the headaches and so she stopped using it. The place where she moved is furnished and it is a firm pillow top. She reports the most pain when sleeping at night. She is sleeping on both sides and on her back. She has a regular pillow under her head. She has tried doubling it up. She has a small pillow between her knees. Prior Treatments and Tests No PT for this issue. PT in 1997 d/t severe back pain. It was helpful. Treatment Goals Patient/Caregiver Goals To figure out where the strain is and how to loosen it PT-OP-C Subjective Start: 08/03/21 07:46 Freq: Status: Active Protocol: Document 08/26/21 08:16 MB (Rec: 08/26/21 08:57 MB [id number]) OP-PT Subjective Patient Comments Patient Comments Pt states that she hasn't done anything since her last PT visit. PT-OP-J Posture/Palpation/Skin Start: 08/03/21 07:46 Freq: Status: Active Protocol: Document 08/05/21 09:46 MB (Rec: 08/05/21 11:18 MB [id number]) Posture Evaluation Comments Posture Comments Standing posture in socks: pt states she is right handed. Right pupil is more dilated than the left, right shoulder is more anterior and IR positioned compared to the left, neck rests in 5 deg right SB, decreasd cervical lordosis, mild Dowager's hump and then decreased thoracic kyphosis, mildly increased lumbar lordosis and anterior tilt pelvis, left iliac crest is higher than the right, overpronation left foot and left leg presents functionally longer than the left in standing today. PT-OP-K Range of Motion Start: 08/03/21 07:46 Freq: Status: Active Protocol: Document 08/05/21 09:46 MB (Rec: 08/05/21 11:18 MB [id number]) Cervical Spine Range of Motion Cervical Spine Active Testing Position Standing Flexion 35 Extension 35 Rotation Left 50 Rotation Right 45 Lateral Flexion Left 10 Lateral Flexion Right 10 Shoulder Goniometric Range of Motion Shoulder Left Shoulder ROM WFL No Testing Position Standing Flexion 161 Abduction 165 Internal Rotation Behind Back (text) Does not reach lower scapular area Comments PROM in supine with shoulder in 90/90: ER normal and IR to 45 deg with pt reporting pain with moving arm from ER into IR. Pt then does so actively and calls out in pain. She cannot localize pain and it does feel in the joint Right Shoulder ROM WFL Yes Testing Position Standing Flexion 167 Abduction 165 Internal Rotation Behind Back (text) To upper scapular area Comments PROM in supine with shoulder in 90/90: normal PT-OP-M Strength Start: 08/03/21 07:46 Freq: Status: Active Protocol: Document 08/05/21 09:46 MB (Rec: 08/05/21 11:18 MB [id number]) Shoulder Strength Shoulder Manual Muscle Testing Left Flexion 5 Normal Abduction (C5) 4 Good External Rotation 4 Good Internal Rotation 5 Normal Comments Pain with resisted abduction today Right Flexion 5 Normal Abduction (C5) 5 Normal External Rotation 5 Normal Internal Rotation 5 Normal Elbow/Forearm Strength Elbow and Forearm Manual Muscle Testing Left Flexion (C6) 5 Normal Extension (C7) 5 Normal Pronation 5 Normal Supination 5 Normal Right Flexion (C6) 5 Normal Extension (C7) 5 Normal Pronation 5 Normal Supination 5 Normal PT-OP-Q Treatments Start: 08/03/21 07:46 Freq: Status: Active Protocol: Document 08/26/21 08:16 MB (Rec: 08/26/21 08:57 MB [id number]) Cardio Equipment Upper Body Ergometer (UBE) Duration (Minutes) 10 Other 1' forward and 1' backward Manual Therapy Treatment Other Other Manual Treatments PT con't to be concerned about subscap problem left shoulder . IR behind back left shoulder is less than right and this is her non-dominant hand. Left shoulder [place] Protocol. Pt with increased tenderness and tightness at superiorposterior GH joint with PA mobs and shoulder in as much ER as she can tolerate . Increased tension and tenderness left shoulder blade with side lying scapular mobs towards right SI joint. Unclear reports if she feels like the left shoulder will give way with ER as far as she can tolerate in supine. With abduction with gentle clavicle mobs, pt has a large pop. Active left shoulder flexion and IR are better after [place] protocol. Pt with popping somewhere anterior shoulder with abduction in supine (passive) and near the top of the shoulder with AAROM abduction in standing. PT-OP-T Assessment and Plan Start: 08/03/21 07:46 Freq: Status: Active Protocol: Document 08/26/21 08:16 MB (Rec: 08/26/21 08:57 MB [id number]) Physical Therapy Assessment Rehab Potential Rehabilitation Potential Fair Evaluation Complexity Number of Personal Factors/Comorbidities 1-2 Number of Body Systems Impaired 1-2 Clinical Presentation at Evaluation Evolving Impairments Impairments Activity Tolerance,Functional Activities,Pain,Posture,ROM, Soft Tissue Mobility,Strength Other Impairments Personal factors include that pt lives alone and drives herself to therapy and she has a new mattresss in her new furnished apartment and her pain started when she moved into her new place. Body systems affected include musculoskeletal and neuromuscular. Her clinical presentation is evolving. Goals 3 Nursing Home Goal (LTG) Pt will perform progressive HEP with I including postural, range, pelvic alignment, intrascapular, core and shoulder strengthening, breathing and other self-care exercises to improve pain and function by 10/06/21. LTG Duration 8 weeks 2 Nursing Home Goal (LTG) Pt will report a 75% improvement in sleeping to improve restorative rest by 10/06/21. LTG Duration 8 weeks 1 Impairment QuickDASH score reflects 50% impairment on eval Nursing Home Goal (LTG) Pt will present with an improved QuickDASH score to reflect no more than 20% impairment and improved function by 10/06/21. LTG Duration 8 weeks Assessment Summary Assessment [place] protocol did help left shoulder active abduction and IR. Pt did have a lot of popping with the mobs and she reports feeling scapular mobs to right SI joint direction, she does have superoposterior GH tension. Con't progression per below. Physical Therapy Plan Frequency and Duration Frequency of Treatment 2x/Week Duration of Treatment 8 weeks Plan of Care Start Date 08/05/21 Plan of Care End Date 10/06/21 Therapeutic Interventions Therapeutic Interventions Balance Training,Canalithic Repositioning,Home Exercise Program,Joint Mobilizations, Manual Therapy,Neuromuscular Re-education,Patient/Caregiver Education,Self-Care/Home Management,Soft Tissue Mobilization,Taping, Therapeutic Activities, Therapeutic Exercises Modalities Cold Pack/Ice Massage,Hot Packs Next Visit Focus/Plan Next Note Type Treatment Note Next Visit Plan Reassess [place] Protocol response Con't UBE Thoracic rotation in sitting with breathing, progress core, yoga poses, strengthening with band in standing as well for shoulder, scapula and multifidi With primary PT: [facility] breathing
--- NOTE | 2021-09-02 11:22 | PT.OTN ---
Current Diagnoses Adhesive capsulitis of left shoulder (09/02/21) Impingement syndrome of left shoulder (09/02/21) Physical Therapy Treatment Note PT-OP-A Visit Information Start: 08/03/21 07:46 Freq: Status: Active Protocol: Document 09/02/21 10:33 SP (Rec: 09/02/21 11:38 SP [id number]) Out-Patient Physical Therapy Visit Information Visit Information Visit Type Treatment Note Visit Note goes by Nan Visit Start Time 10:33 Visit Stop Time 11:22 Total Visit Minutes 49 Visit Number 7 Number of TRADEMARK ATTORNEY Visits 1 Evaluation Information Evaluation Date 08/05/21 PT-OP-B Current Condition Start: 08/03/21 07:46 Freq: Status: Active Protocol: Document 08/05/21 09:46 MB (Rec: 08/05/21 10:32 MB [id number]) Current Condition History of Current Condition Onset Date End of May, beginning of June 2021 Current Complaints Left-sided shoulder pain History of Current Condition Pt states that she is not in the same amount of suffering she was in 10 times ago. She is taking ibuprofen. She is performing wall crawls and pendulums given to her by Rozina Kelly. In late May, pt moved from [place] to [place]. She got a new mattress. Her left shoulder hurt when she was lying on her left side and when she was driving. She had a lot of pain in June. She states it was inside the back of her left shoulder and also in the front. Pt reports 2/10 pain in the triceps area, 6/ 10 superior posterior shoulder pain, 7/10 intrascapular pain and 6/10 midline pain. She is taking ibuprofen 2x/day . She takes 400 mg in the morning and 400 mg before she goes to bed. She has been doing that for 10 days. PMH includes headaches 3-4x/wk , she wakes up with headaches, abdominal surgery to remove ovary, vericose veins. She had a low sleep apnea test and was given a CPAP machine. She didn't notice a change in the headaches and so she stopped using it. The place where she moved is furnished and it is a firm pillow top. She reports the most pain when sleeping at night. She is sleeping on both sides and on her back. She has a regular pillow under her head. She has tried doubling it up. She has a small pillow between her knees. Prior Treatments and Tests No PT for this issue. PT in 1997 d/t severe back pain. It was helpful. Treatment Goals Patient/Caregiver Goals To figure out where the strain is and how to loosen it PT-OP-C Subjective Start: 08/03/21 07:46 Freq: Status: Active Protocol: Document 09/02/21 10:33 SP (Rec: 09/02/21 11:38 SP [id number]) OP-PT Subjective Patient Comments Patient Comments Pt reports has good and bad days. Still pain limiting in abd with ER going into [facility] and reaching OH. Feels more crunching. Pt responded well to the manual [place] protocol and felt better after tx. PT-OP-J Posture/Palpation/Skin Start: 08/03/21 07:46 Freq: Status: Active Protocol: Document 08/05/21 09:46 MB (Rec: 08/05/21 11:18 MB [id number]) Posture Evaluation Comments Posture Comments Standing posture in socks: pt states she is right handed. Right pupil is more dilated than the left, right shoulder is more anterior and IR positioned compared to the left, neck rests in 5 deg right SB, decreasd cervical lordosis, mild Dowager's hump and then decreased thoracic kyphosis, mildly increased lumbar lordosis and anterior tilt pelvis, left iliac crest is higher than the right, overpronation left foot and left leg presents functionally longer than the left in standing today. PT-OP-K Range of Motion Start: 08/03/21 07:46 Freq: Status: Active Protocol: Document 09/02/21 10:33 SP (Rec: 09/02/21 11:38 SP [id number]) Shoulder Goniometric Range of Motion Shoulder Left Shoulder ROM WFL No Testing Position Standing Flexion 157 Abduction 168 External Rotation at 0 degrees Abduction 71 Internal Rotation Behind Back (text) T8 Comments tested standing pre/post [place] protocol: FF 152*> 157* ABD 168* same 168* post ER arm at side: 65*>71* IR behind back: T9> T8 PT-OP-M Strength Start: 08/03/21 07:46 Freq: Status: Active Protocol: Document 08/05/21 09:46 MB (Rec: 08/05/21 11:18 MB [id number]) Shoulder Strength Shoulder Manual Muscle Testing Left Flexion 5 Normal Abduction (C5) 4 Good External Rotation 4 Good Internal Rotation 5 Normal Comments Pain with resisted abduction today Right Flexion 5 Normal Abduction (C5) 5 Normal External Rotation 5 Normal Internal Rotation 5 Normal Elbow/Forearm Strength Elbow and Forearm Manual Muscle Testing Left Flexion (C6) 5 Normal Extension (C7) 5 Normal Pronation 5 Normal Supination 5 Normal Right Flexion (C6) 5 Normal Extension (C7) 5 Normal Pronation 5 Normal Supination 5 Normal PT-OP-Q Treatments Start: 08/03/21 07:46 Freq: Status: Active Protocol: Document 09/02/21 10:33 SP (Rec: 09/02/21 11:38 SP [id number]) Therapeutic Exercises Sidelying Exercises open book Sidelying Exercise Name assessed for pain relief and ROM Side left Reps/Minutes x5 Comments good response, recheck for HEP next tx & give hand out. Standing Exercises theracane Standing Exercise Name gave handout Side left Comments introduced MWM inter scap and post neck MWM Racquet ball massage and MWM Standing Exercise Name MWM upper traps and infraspinatus and STM intrascapular area Side bilateral Comments reviewed- discussion performs at home, helpful Manual Therapy Treatment Soft Tissue Mobilization STMs Body Location L supraspinatus, distal infraspinatus, subclavius, prox pec to sternum Mobilization Type Strumming,Sustained Pressure Intensity/Depth Moderate Body Position Sidelying Comments decreased tightness to allow cross body stretch. Instructed self STMs: sustained pressure with breath : prox pec and intercostals subclavius at sternum/ sub clavicle Instructed self theracane MWM interscap, supraspinatus small range abd and post neck musculture with head nod/ turn or scap pro/retraction/ elevation/ depression Manual Techniques [place] protocol Type L shld Comments prone, sidelying, supine most discomfort over posterolateral AC jt PT-OP-T Assessment and Plan Start: 08/03/21 07:46 Freq: Status: Active Protocol: Document 09/02/21 10:33 SP (Rec: 09/02/21 11:38 SP [id number]) Physical Therapy Assessment Goals 3 Senior Supplier Quality Engineer Goal (LTG) Pt will perform progressive HEP with I including postural, range, pelvic alignment, intrascapular, core and shoulder strengthening, breathing and other self-care exercises to improve pain and function by 2/2/22. LTG Duration 8 weeks 2 Senior Supplier Quality Engineer Goal (LTG) Pt will report a 75% improvement in sleeping to improve restorative rest by 10/06/21. LTG Duration 8 weeks 1 Impairment QuickDASH score reflects 50% impairment on eval Senior Supplier Quality Engineer Goal (LTG) Pt will present with an improved QuickDASH score to reflect no more than 20% impairment and improved function by 10/06/21. LTG Duration 8 weeks Assessment Summary Assessment Pt had good response to manual and instroduction to theracane during tx MWM, I like this, can release areas hard to get to. Pt gained 5 deg FF, 6 deg ER and IR by 1 spinal segment pre to post [place] protocol manual therapy today. Recheck introduction to open book for home next tx. Pt reports better understands mechanics and anatomy given more education this tx and how more specific self massage muscles posterior scap and neck to carryover at home if acquires theracane. Didn't progress therex strengthening this tx. Physical Therapy Plan Frequency and Duration Frequency of Treatment 2x/Week Duration of Treatment 8 weeks Plan of Care Start Date 08/05/21 Plan of Care End Date 10/06/21 Therapeutic Interventions Therapeutic Interventions Balance Training,Canalithic Repositioning,Home Exercise Program,Joint Mobilizations, Manual Therapy,Neuromuscular Re-education,Patient/Caregiver Education,Self-Care/Home Management,Soft Tissue Mobilization,Taping, Therapeutic Activities, Therapeutic Exercises Modalities Cold Pack/Ice Massage,Hot Packs Next Visit Focus/Plan Next Note Type Treatment Note Next Visit Plan Reassess [place] Protocol response Con't UBE Thoracic rotation in sitting with breathing, progress core, yoga poses, strengthening with band in standing as well for shoulder, scapula and multifidi With primary PT: [place] breathing
--- NOTE | 2021-09-07 09:43 | PT.OTN ---
Current Diagnoses Adhesive capsulitis of left shoulder (09/07/21) Impingement syndrome of left shoulder (09/07/21) Physical Therapy Treatment Note PT-OP-A Visit Information Start: 08/03/21 07:46 Freq: Status: Active Protocol: Document 09/07/21 09:03 MB (Rec: 09/07/21 09:40 MB [id number]) Out-Patient Physical Therapy Visit Information Visit Information Visit Type Treatment Note Visit Note goes by Nan 09/27 visits per year Visit Start Time 09:03 Visit Stop Time 09:43 Total Visit Minutes 40 Visit Number 8 Number of TECHNICAL INFORMATION SPECIALIST Visits 0 Evaluation Information Evaluation Date 08/05/21 PT-OP-B Current Condition Start: 08/03/21 07:46 Freq: Status: Active Protocol: Document 08/05/21 09:46 MB (Rec: 08/05/21 10:32 MB [id number]) Current Condition History of Current Condition Onset Date End of May, beginning of June 2021 Current Complaints Left-sided shoulder pain History of Current Condition Pt states that she is not in the same amount of suffering she was in 10 times ago. She is taking ibuprofen. She is performing wall crawls and pendulums given to her by Rozina Klely. In late May, pt moved from [place] to [place]. She got a new mattress. Her left shoulder hurt when she was lying on her left side and when she was driving. She had a lot of pain in June. She states it was inside the back of her left shoulder and also in the front. Pt reports 2/10 pain in the triceps area, 6/ 10 superior posterior shoulder pain, 7/10 intrascapular pain and 6/10 midline pain. She is taking ibuprofen 2x/day . She takes 400 mg in the morning and 400 mg before she goes to bed. She has been doing that for 10 days. PMH includes headaches 3-4x/wk , she wakes up with headaches, abdominal surgery to remove ovary, vericose veins. She had a low sleep apnea test and was given a CPAP machine. She didn't notice a change in the headaches and so she stopped using it. The place where she moved is furnished and it is a firm pillow top. She reports the most pain when sleeping at night. She is sleeping on both sides and on her back. She has a regular pillow under her head. She has tried doubling it up. She has a small pillow between her knees. Prior Treatments and Tests No PT for this issue. PT in 1997 d/t severe back pain. It was helpful. Treatment Goals Patient/Caregiver Goals To figure out where the strain is and how to loosen it PT-OP-C Subjective Start: 08/03/21 07:46 Freq: Status: Active Protocol: Document 09/07/21 09:03 MB (Rec: 09/07/21 09:40 MB [id number]) OP-PT Subjective Patient Comments Patient Comments Pt states that she is feeling so good, she would like to just have one more visit with PT. She has not been taking ibuprofen anymore. She got a pool noodle. The manual PT has been helpful with loosening. Her shoulder isn't catching as much. PT-OP-J Posture/Palpation/Skin Start: 08/03/21 07:46 Freq: Status: Active Protocol: Document 08/05/21 09:46 MB (Rec: 08/05/21 11:18 MB [id number]) Posture Evaluation Comments Posture Comments Standing posture in socks: pt states she is right handed. Right pupil is more dilated than the left, right shoulder is more anterior and IR positioned compared to the left, neck rests in 5 deg right SB, decreasd cervical lordosis, mild Dowager's hump and then decreased thoracic kyphosis, mildly increased lumbar lordosis and anterior tilt pelvis, left iliac crest is higher than the right, overpronation left foot and left leg presents functionally longer than the left in standing today. PT-OP-K Range of Motion Start: 08/03/21 07:46 Freq: Status: Active Protocol: Document 09/02/21 10:33 SP (Rec: 09/02/21 11:38 SP [id number]) Shoulder Goniometric Range of Motion Shoulder Left Shoulder ROM WFL No Testing Position Standing Flexion 157 Abduction 168 External Rotation at 0 degrees Abduction 71 Internal Rotation Behind Back (text) T8 Comments tested standing pre/post partridge protocol: FF 152*> 157* ABD 168* same 168* post ER arm at side: 65*>71* IR behind back: T9> T8 PT-OP-M Strength Start: 08/03/21 07:46 Freq: Status: Active Protocol: Document 08/05/21 09:46 MB (Rec: 08/05/21 11:18 MB [id number]) Shoulder Strength Shoulder Manual Muscle Testing Left Flexion 5 Normal Abduction (C5) 4 Good External Rotation 4 Good Internal Rotation 5 Normal Comments Pain with resisted abduction today Right Flexion 5 Normal Abduction (C5) 5 Normal External Rotation 5 Normal Internal Rotation 5 Normal Elbow/Forearm Strength Elbow and Forearm Manual Muscle Testing Left Flexion (C6) 5 Normal Extension (C7) 5 Normal Pronation 5 Normal Supination 5 Normal Right Flexion (C6) 5 Normal Extension (C7) 5 Normal Pronation 5 Normal Supination 5 Normal PT-OP-Q Treatments Start: 08/03/21 07:46 Freq: Status: Active Protocol: Document 09/07/21 09:03 MB (Rec: 09/07/21 09:40 MB [id number]) Cardio Equipment Upper Body Ergometer (UBE) Duration (Minutes) 12 Other 1' forward and 1' backward Therapeutic Exercises Supine Exercises Shoulder and elbow flexion and extension Side bilateral Resistance Level 1 band around wrists Equipment Used Red pool noodle Comments 10 reps each, cues for form Posterior capsule stretch Equipment Used Red pool noodle Comments B 30 sec hold Pool noodle exercises Supine Exercise Name Horizontal abduction, shoulder ER and PNF Resistance Level 1 band ER, level 1&2 hor abd; level 1 PNF Equipment Used Red pool noodle Comments 10 reps slowly each pec stretch Equipment Used Red pool noodle Comments Elbows bent and pt tends not to let arms rest down PT-OP-T Assessment and Plan Start: 08/03/21 07:46 Freq: Status: Active Protocol: Document 09/07/21 09:03 MB (Rec: 09/07/21 09:40 MB [id number]) Physical Therapy Assessment Rehab Potential Rehabilitation Potential Fair Evaluation Complexity Number of Personal Factors/Comorbidities 1-2 Number of Body Systems Impaired 1-2 Clinical Presentation at Evaluation Evolving Impairments Impairments Activity Tolerance,Functional Activities,Pain,Posture,ROM, Soft Tissue Mobility,Strength Other Impairments Personal factors include that pt lives alone and drives herself to therapy and she has a new mattresss in her new furnished apartment and her pain started when she moved into her new place. Body systems affected include musculoskeletal and neuromuscular. Her clinical presentation is evolving. Goals 3 Commercial Finance Analyst Goal (LTG) Pt will perform progressive HEP with I including postural, range, pelvic alignment, intrascapular, core and shoulder strengthening, breathing and other self-care exercises to improve pain and function by 10/06/21. LTG Duration 8 weeks 2 Fpc Goal (LTG) Pt will report a 75% improvement in sleeping to improve restorative rest by 10/06/21. LTG Duration 8 weeks 1 Impairment QuickDASH score reflects 50% impairment on eval Fpc Goal (LTG) Pt will present with an improved QuickDASH score to reflect no more than 20% impairment and improved function by 10/06/21. LTG Duration 8 weeks Assessment Summary Assessment Pt states that she has feeling a lot better with PT and she is ready to d/c. Reviewed her strengthening exercises on the pool noodle today. Will anticipate d/c next treatment date. Physical Therapy Plan Frequency and Duration Frequency of Treatment 2x/Week Duration of Treatment 8 weeks Plan of Care Start Date 08/05/21 Plan of Care End Date 10/06/21 Therapeutic Interventions Therapeutic Interventions Balance Training,Canalithic Repositioning,Home Exercise Program,Joint Mobilizations, Manual Therapy,Neuromuscular Re-education,Patient/Caregiver Education,Self-Care/Home Management,Soft Tissue Mobilization,Taping, Therapeutic Activities, Therapeutic Exercises Modalities Cold Pack/Ice Massage,Hot Packs Next Visit Focus/Plan Next Note Type Discharge Summary
--- NOTE | 2021-09-14 13:45 | PT.OTN ---
Current Diagnoses Adhesive capsulitis of left shoulder (09/14/21) Impingement syndrome of left shoulder (09/14/21) Physical Therapy Treatment Note PT-OP-A Visit Information Start: 08/03/21 07:46 Freq: Status: Active Protocol: Document 09/14/21 13:03 MB (Rec: 09/14/21 13:44 MB [id number]) Out-Patient Physical Therapy Visit Information Visit Information Visit Type Treatment Note Visit Note goes by Nan 2/24 visits per year Visit Start Time 13:03 Visit Stop Time 13:43 Total Visit Minutes 40 Visit Number 9 Number of MANAGER BUSINESS PLANNING Visits 0 Evaluation Information Evaluation Date 08/05/21 PT-OP-B Current Condition Start: 08/03/21 07:46 Freq: Status: Active Protocol: Document 08/05/21 09:46 MB (Rec: 08/05/21 10:32 MB [id number]) Current Condition History of Current Condition Onset Date End of May, beginning of June 2021 Current Complaints Left-sided shoulder pain History of Current Condition Pt states that she is not in the same amount of suffering she was in 10 times ago. She is taking ibuprofen. She is performing wall crawls and pendulums given to her by Rozina Kelly. In late May, pt moved from [place] to [place]. She got a new mattress. Her left shoulder hurt when she was lying on her left side and when she was driving. She had a lot of pain in June. She states it was inside the back of her left shoulder and also in the front. Pt reports 2/10 pain in the triceps area, 6/ 10 superior posterior shoulder pain, 7/10 intrascapular pain and 6/10 midline pain. She is taking ibuprofen 2x/day . She takes 400 mg in the morning and 400 mg before she goes to bed. She has been doing that for 10 days. PMH includes headaches 3-4x/wk , she wakes up with headaches, abdominal surgery to remove ovary, vericose veins. She had a low sleep apnea test and was given a CPAP machine. She didn't notice a change in the headaches and so she stopped using it. The place where she moved is furnished and it is a firm pillow top. She reports the most pain when sleeping at night. She is sleeping on both sides and on her back. She has a regular pillow under her head. She has tried doubling it up. She has a small pillow between her knees. Prior Treatments and Tests No PT for this issue. PT in 1997 d/t severe back pain. It was helpful. Treatment Goals Patient/Caregiver Goals To figure out where the strain is and how to loosen it PT-OP-C Subjective Start: 08/03/21 07:46 Freq: Status: Active Protocol: Document 09/14/21 13:03 MB (Rec: 09/14/21 13:44 MB [id number]) OP-PT Subjective Patient Comments Patient Comments Pt states that she noticed she went a whole 24 hours without thinking about her shoulder. She is totally ready to d/c. PT-OP-J Posture/Palpation/Skin Start: 08/03/21 07:46 Freq: Status: Active Protocol: Document 08/05/21 09:46 MB (Rec: 08/05/21 11:18 MB [id number]) Posture Evaluation Comments Posture Comments Standing posture in socks: pt states she is right handed. Right pupil is more dilated than the left, right shoulder is more anterior and IR positioned compared to the left, neck rests in 5 deg right SB, decreasd cervical lordosis, mild Dowager's hump and then decreased thoracic kyphosis, mildly increased lumbar lordosis and anterior tilt pelvis, left iliac crest is higher than the right, overpronation left foot and left leg presents functionally longer than the left in standing today. PT-OP-K Range of Motion Start: 08/03/21 07:46 Freq: Status: Active Protocol: Document 09/02/21 10:33 SP (Rec: 09/02/21 11:38 SP [id number]) Shoulder Goniometric Range of Motion Shoulder Left Shoulder ROM WFL No Testing Position Standing Flexion 157 Abduction 168 External Rotation at 0 degrees Abduction 71 Internal Rotation Behind Back (text) T8 Comments tested standing pre/post partridge protocol: FF 152*> 157* ABD 168* same 168* post ER arm at side: 65*>71* IR behind back: T9> T8 PT-OP-M Strength Start: 08/03/21 07:46 Freq: Status: Active Protocol: Document 08/05/21 09:46 MB (Rec: 08/05/21 11:18 MB [id number]) Shoulder Strength Shoulder Manual Muscle Testing Left Flexion 5 Normal Abduction (C5) 4 Good External Rotation 4 Good Internal Rotation 5 Normal Comments Pain with resisted abduction today Right Flexion 5 Normal Abduction (C5) 5 Normal External Rotation 5 Normal Internal Rotation 5 Normal Elbow/Forearm Strength Elbow and Forearm Manual Muscle Testing Left Flexion (C6) 5 Normal Extension (C7) 5 Normal Pronation 5 Normal Supination 5 Normal Right Flexion (C6) 5 Normal Extension (C7) 5 Normal Pronation 5 Normal Supination 5 Normal PT-OP-Q Treatments Start: 08/03/21 07:46 Freq: Status: Active Protocol: Document 09/14/21 13:03 MB (Rec: 09/14/21 13:44 MB [id number]) Cardio Equipment Upper Body Ergometer (UBE) Duration (Minutes) 10 Other 1' forward and 1' backward Manual Therapy Treatment Other Other Manual Treatments Left shoulder [place] protocol and pt has tension at posterior capsule for mobs, grade I-II first rib mobs B, grade I-II PA cervical mobs, upper traps MWM PT-OP-T Assessment and Plan Start: 08/03/21 07:46 Freq: Status: Active Protocol: Document 09/14/21 13:03 MB (Rec: 09/14/21 13:44 MB [id number]) Physical Therapy Assessment Goals 3 [place] Goal (LTG) Pt will perform progressive HEP with I including postural, range, pelvic alignment, intrascapular, core and shoulder strengthening, breathing and other self-care exercises to improve pain and function by 10/06/21. 09/14/21: Pt is performing progressive exercises including strengthening with I LTG Duration Met 2 [place] Goal (LTG) Pt will report a 75% improvement in sleeping to improve restorative rest by 10/06/21. 09/14/21: Pt reports at least a 75% improvement in sleeping since starting PT LTG Duration Met 1 Impairment QuickDASH score reflects 50% impairment on eval Senior Living Goal (LTG) Pt will present with an improved QuickDASH score to reflect no more than 20% impairment and improved function by 10/06/21. 09/14/21: QuickDASH score reflect 4.54% impairment LTG Duration Met Assessment Summary Assessment Pt has met PT goals and is ready to d/c. She will con't with PT exercises at home. She may benefit from an orthopedic consult in the future to determine of she has a capsular or subscap/ rotator cuff anatomical change .
== END 2021-10-05 08:33 ==
LOC: PHYS 13:00
PROVIDERS: Family Provider Internal Medicine; PCP Internal Medicine; Referring Provider Internal Medicine; Visit Provider Internal Medicine
DX: M75.42 Impingement syndrome of left shoulder (principal); M75.02 Adhesive capsulitis of left shoulder
CPT/HCPCS: 97110; 97140; 97161; 97535

== ENCOUNTER → 2022-09-01 14:42 | Outpatient (CLI) | payer OTHER, MEDICAID, SELFPAY ==
--- NOTE | 2022-09-01 | DI.ECHO.S_ITS ---
[facility]---------+ [facility] +---------+ : : [address] : : : : [id number] : : : : Phone: [phone]+ Echocardiogram Report + + :Name: ALLA GLASS Study Date: 09/01/2022 Height: 66 in : :[facility] ReadingLocation: Weight: 158 lb : : Gender: Female BSA: 1.8 m2 : :: 1960 Age: 62 yrs BP: 125/82 mmHg: :Reason For Study: ATRIAL FIBRILLATION : :Ordering Physician: CHRISTIANO Butterfield : :YEMI Performed By: Florence Hernandez : :Referring: MALLORY YEBOAH : + + Interpretation Summary 1) Normal left ventricular thickness, size, wall motion, and systolic function (EF 60-65%). 2) Mildly enlarged right ventricle with normal function. 3) No significant valvular abnormalities. 4) The ascending aorta is mildly enlarged at 3.9cm. 5) No prior Echo available for comparison. Procedure: A two-dimensional transthoracic echocardiogram with color flow and Doppler was performed. The study quality was technically adequate. There is no prior echocardiogram noted for this patient. The patient was in sinus rhythm with heart rates between 58-70 bpm during the exam. Left Ventricle: The left ventricle is normal in size and wall thickness. The ejection fraction is estimated to be 60-65%. Left ventricular systolic function is normal. Left ventricular wall motion is normal. Diastolic parameters suggest a relaxation abnormality of the left ventricle, consistent with probable normal filling pressures. Right Ventricle: The right ventricle is mildly dilated. The right ventricular systolic function is normal. Atria: The left atrium is moderately dilated. Right atrial size is normal. There is no Doppler evidence for an interatrial shunt. Mitral Valve: The mitral valve is normal in structure and function. There is trace mitral regurgitation. Aortic Valve: The aortic valve is trileaflet. The aortic valve opens well. There is no aortic valve stenosis. No aortic regurgitation is present. Tricuspid Valve: The tricuspid valve is normal in structure and function. There is mild tricuspid regurgitation. The right ventricular systolic pressure is estimated to be at least 24 mmHg based on an estimated right atrial pressure of 3 mm Hg. Pulmonic Valve: The pulmonic valve is not well visualized. There is no pulmonic valvular regurgitation. Great Vessels: The aortic root is borderline dilated. The ascending aorta is mildly enlarged. The IVC is of normal diameter and collapses greater than 50% with a sniff. This suggests a low right atrial pressure of 3 mm Hg. Pericardium/ Pleura There is no pericardial effusion. There is no pleural effusion. MMode/2D Measurements & Calculations LVIDd: 5.2 cm LVOT diam: 2.2 cm LVIDs: 3.7 cm Ao root diam: 3.8 cm FS: 27.7 % asc Aorta Diam: 3.9 cm IVSd: 0.85 cm Ao Arch Diam (Prox Trans): 3.3 cm LVPWd: 0.85 cm LV mike. diameter/BSA (cm/m^2): 2.9 LV sys. diameter/BSA (cm/m^2): 2.1 LA A2 area: 23.2 cm2 RA long axis: 5.4 cm LA A4 area: 18.6 cm2 RA area: 17.0 cm2 LA length (vol): 5.0 cm RA vol: 44.9 ml LA vol: 73.9 ml RA : 24.8 ml/m2 LA vol index: 40.9 ml/m2 IVC diam: 0.60 cm RVD1 (basal): 4.5 cm RVD2 (mid): 3.8 cm TAPSE: 2.8 cm Doppler Measurements & Calculations Ao V2 max: 126.7 cm/sec LVOT Max Cristino: 98.6 cm/sec Ao V2 mean: 85.8 cm/sec LV V1 max P.9 mmHg Ao max P.4 mmHg LV V1 VTI: 23.0 cm Ao mean P.3 mmHg KANA(I,D): 3.3 cm2 Ao V2 VTI: 27.1 cm KANA(V,D): 3.0 cm2 sev ratio: 0.85 KANA indexed to BSA (cm^2/m^2): 1.8 MV E max cristino: 65.9 cm/sec TR max cristino: 217.8 cm/sec MV A max cristino: 66.8 cm/sec TR max P.6 mmHg MV E/A: 0.99 PA V2 max: 75.5 cm/sec Med Peak E' Cristino: 5.2 cm/sec PA V2 mean: 54.9 cm/sec E/E' med: 12.6 PA mean P.4 mmHg Lat Peak E' Cristino: 6.5 cm/sec PA pr(Accel): 12.2 mmHg E/E' lat: 10.1 E/e' average: 11.3 MV dec time: 0.20 sec SV(LVOT): 89.0 ml Reading Physician:05:04 PM
== END ==
PROVIDERS: Family Provider Internal Medicine; PCP Internal Medicine; Referring Provider Internal Medicine; Visit Provider Internal Medicine
DX: I48.0 Paroxysmal atrial fibrillation (principal); R00.2 Palpitations; I07.1 Rheumatic tricuspid insufficiency; I77.89 Other specified disorders of arteries and arterioles
CPT/HCPCS: 93306

== ENCOUNTER → 2023-04-20 12:45 | Outpatient (CLI) | payer OTHER, MEDICAID, SELFPAY ==
--- NOTE | 2023-04-20 | DI.MG.S_ITS ---
BILATERAL DIGITAL SCREENING MAMMOGRAM 3D/2D WITH CAD: 04/20/2023 CLINICAL: Routine screening. Family history of breast cancer. Comparison is made to exams dated: 06/13/2016 mammogram, 12/09/2013 mammogram - [facility], and 12/07/2010 mammogram - [facility]. Both breasts are heterogeneously dense, which may obscure small masses (category c / 51-75% glandular tissue). Current study was also evaluated with a Computer Aided Detection (CAD) system. No significant masses, calcifications, or other findings are seen in either breast. There has been no significant interval change. IMPRESSION: NEGATIVE There is no mammographic evidence of malignancy. A 1 year screening mammogram is recommended. Based on the Tyrer Cuzick model (a risk assessment model) the patient's lifetime risk is 9.5% and her 10 year risk is 4.5%. According to the ACR, ACS, and NCCN guidelines, an annual breast MRI exam along with mammogram is recommended if the patient's lifetime risk is 20% or greater. This exam was interpreted at Station ID: [id number]. NOTE: For mammograms, a report in lay terms will be sent to the patient. Approximately 15% of breast malignancies will not be visualized mammographically. In the management of a palpable breast mass, a negative mammogram must not discourage biopsy of a clinically suspicious lesion. Electronically Signed By: Lizeth wilkes/carlos:04/20/2023 16:59:35 letter sent: Normal Exam ACR BI-RADS Category 1: Negative [id number]
== END ==
PROVIDERS: Family Provider Internal Medicine; PCP Internal Medicine; Referring Provider Internal Medicine; Visit Provider Internal Medicine
DX: Z12.31 Encounter for screening mammogram for malignant neoplasm of breast (principal); Z80.3 Family history of malignant neoplasm of breast
CPT/HCPCS: 77063; 77067

== ENCOUNTER → 2023-09-26 10:08 | Outpatient (CLI) | payer MEDICAID, SELFPAY ==
--- NOTE | 2023-09-26 | DI.RAD.S_ITS ---
Bone Density Report Name: ALLA GLASS Age: 63 Sex: Female Ethnicity: White Date of : 1960 Indication: postmenopausal; screening for osteoporosis; Referring Provider: MALLORY YEBOAH Study: Bone densitometry was performed. Exam Date: September 26, 2023 Accession number: [id number] Bone Density: Region BMD T-score Z-score Classification AP Spine(L1-L4) 0.750 -2.7 -0.9 Osteoporosis Femoral Neck (Left) 0.704 -1.3 0.2 Osteopenia Total Hip (Left) 0.907 -0.3 1.0 Normal Femoral Neck (Right) 0.719 -1.2 0.4 Osteopenia Total Hip (Right) 0.891 -0.4 0.8 Normal Total Hip Mean 0.899 -0.4 0.9 Normal World Health Organization criteria for BMD impression classify patients as: Normal (T-score at or above -1.0), Osteopenia (T-score between -1.0 and -2.5), or Osteoporosis (T-score at or below -2.5). 10-year Fracture Risk: FRAX not reported because: Some T-score for Spine Total or Hip Total or Femoral Neck at or below -2.5 Impression: The patient has osteoporosis, based on the Total Spine T-score. Discussion: INCREASED RISK OF FRACTURE. BONE DENSITY IS UNDESIRABLY LOW AT ONE OR MORE SKELETAL SITES, CONSISTENT WITH POSTMENOPAUSAL OSTEOPOROSIS. This patient's lowest T-score meets the World Health Organization's (WHO) criteria for osteoporosis at one or more sites (T-score -2.5 or below). In untreated patients, the risk of osteoporotic fracture increases approximately two-fold for each 1.0 SD decrease in T-score. Low bone density is not the only risk factor for fracture; also consider factors such as patient's age, frailty or poor health, risk of falling, risk of injury, previous osteoporotic fracture, family history of osteoporosis, cigarette smoking, low body weight, etc. Not everyone with low bone mineral density has osteoporosis; osteomalacia and other metabolic bone disorders should also be considered. Patients who have osteoporosis should be evaluated for specific diseases and conditions (secondary causes) that may cause or contribute to bone loss. The [place] [employer] Clinical Endocrinologists (AACE) and National Osteoporosis Foundation (NOF) recommend pharmacologic intervention for all postmenopausal women whose T-score is in this range. The patient should follow a healthful lifestyle (good nutrition with adequate calcium and vitamin D, and appropriate weight-bearing exercise). Follow-Up: Consider a repeat BMD and Vertebral Fracture Assessment (VFA) exam in 2 years or sooner if medically necessary, to reassess this patient's status. Reported by: ASHISH MONTERO M.D. on 09/26/2023 10:35:00 AM.
== END ==
PROVIDERS: Family Provider Internal Medicine; PCP Internal Medicine; Referring Provider Internal Medicine; Visit Provider Internal Medicine
DX: Z78.0 Asymptomatic menopausal state (principal); M81.0 Age-related osteoporosis without current pathological fracture
CPT/HCPCS: 77080

== ENCOUNTER → 2024-05-28 13:03 | Outpatient (CLI) | payer MEDICARE, SELFPAY ==
--- NOTE | 2024-05-28 13:04 | DI.MRI.S_ITS ---
PROCEDURE: MR ANKLE LT WO/W CON INDICATIONS: left ankle pain,hindfoot mass TECHNIQUE: Noncontrast sagittal T1 spin echo and T2 fast spin echo with fat saturation, axial proton density fast spin echo and T2 fast spin echo with fat saturation, axial T1 spin echo with fat saturation, coronal T1 spin echo and T2 fast spin echo with fat saturation through the ankle/hindfoot. Post-contrast axial, coronal, and sagittal T1 spin echo with fat saturation through the ankle/hindfoot. COMPARISON: [facility] [place], CR, XR FOOT 3 VIEWS WEIGHT BEARING LEFT, 05/21/2024, 13:39. [facility] [place], CR, XR ANKLE 1 OR 2 VIEWS WEIGHT BEARING BILATERAL, 05/21/2024, 13:42. FINDINGS: Image quality: Excellent. Bones and joints: A large mildly edematous ossification with corticated margins is seen lateral to the calcaneocuboid joint measuring approximately 2.4 x 1.4 x 1.8 cm. Small nonedematous plantar calcaneal enthesophyte. No hindfoot coalitions. No osteochondral injuries of the talar dome. No enhancing soft tissue mass. Medial structures: The deltoid ligament and the spring ligament complex are intact. The posterior tibialis, flexor digitorum longus, and flexor hallucis longus tendons are intact. The posterior tibial neurovascular bundle appears normal within the tarsal tunnel, without extrinsic mass effect. Lateral structures: Remote prior grade 2 sprain of the anterior talofibular ligament and the calcaneofibular ligament. Posterior talofibular ligament is intact. The anterior and posterior tibiofibular ligaments are intact. The peroneus brevis and longus tendons may be mildly inferiorly displaced by the ossification at the lateral ankle. Moderate peroneus brevis and mild peroneus longus tendinosis. The ossification is not located along the peroneus longus tendon. The sinus tarsi demonstrates normal fatty signal. Anterior structures: The tibialis anterior, extensor hallucis longus, and extensor digitorum longus tendons appear intact. Posterior and plantar structures: Achilles tendon is intact. The proximal plantar fascia is moderately thickened without surrounding edema. No abductor digiti minimi muscle atrophy to suggest Zayas neuropathy. IMPRESSION: 1. Large corticated ossification is seen at the lateral hindfoot adjacent to the calcaneocuboid joint, which may be secondary to prior trauma or congenital variation. There is bulging of the overlying skin surface and edema within the ossification suggesting the lesion may be symptomatic. No solid enhancing soft tissue mass. 2. Remote prior grade 2 sprains of the anterior talofibular ligament and the calcaneofibular ligament. 3. Moderate peroneus brevis and mild peroneus longus tendinosis. 4. Moderate chronic proximal plantar fasciitis. Approved by: Real Montilla M.D. on 05/29/2024 at 15:51
== END ==
PROVIDERS: Family Provider Internal Medicine; PCP Internal Medicine; Referring Provider Orthopaedic Surgery Foot and Ankle Surgery; Visit Provider Orthopaedic Surgery Foot and Ankle Surgery
DX: S93.412A Sprain of calcaneofibular ligament of left ankle, initial encounter (principal); S93.492A Sprain of other ligament of left ankle, initial encounter; M25.572 Pain in left ankle and joints of left foot; M72.2 Plantar fascial fibromatosis
CPT/HCPCS: 73723; A9579

== ENCOUNTER → 2024-11-04 15:21 | Outpatient (CLI) | payer MEDICARE, OTHER, SELFPAY ==
--- NOTE | 2024-11-04 15:24 | DI.MG.S_ITS ---
MM screening mammo BI: 11/04/2024. BI-RADS: 1 CLINICAL: 64-year old female for bilateral screening mammogram. Tyrer-Cuzick lifetime risk of 10.9%. No personal or first-degree family history of breast cancer. Current reported family history of breast cancer: paternal aunt. PRIOR EXAMS 04/20/2023. MAMMOGRAPHY TECHNIQUE: 2D and 3D (tomosynthesis) digital mammographic views obtained, with additional images as needed for full coverage. Current study was also evaluated with a Computer Aided Detection (CAD) system. DENSITY C. The breasts are heterogeneously dense, which may obscure small masses. MAMMOGRAPHY FINDINGS Bilateral: No suspicious mass, asymmetry, microcalcification, or other abnormality seen. IMPRESSION: * No evidence of malignancy. RECOMMENDATIONS Bilateral * Annual screening mammography. OVERALL ASSESSMENT CATEGORY BI-RADS-1: Negative. The [employer] [place] [employer] recommends annual screening mammography beginning at age 40 for women with average risk of breast cancer. ELECTRONICALLY SIGNED: Abner Saab M.D. on 11/05/2024 at 09:53:11 AM Interpreting Station ID: [id number]
== END ==
PROVIDERS: Family Provider Internal Medicine; PCP Family Medicine; Referring Provider Family Medicine; Visit Provider Family Medicine
DX: Z12.31 Encounter for screening mammogram for malignant neoplasm of breast (principal); Z80.3 Family history of malignant neoplasm of breast; R92.333 Mammographic heterogeneous density, bilateral breasts
CPT/HCPCS: 77063; 77067

== ENCOUNTER 2025-08-05 11:34 | Observation (INO) | payer MEDICARE, OTHER, SELFPAY ==
[2025-08-05] VITALS (13 sets, daily range): BP systolic 137–172; BP diastolic 79–122; PULSE 63–73; RESP 16–24; TEMP 36.2–37; O2SAT 95–100; BMI 25.5
--- NOTE | 2025-08-05 11:42 | DI.RAD.S_ITS ---
PROCEDURE: XR CHEST 1V INDICATIONS: Chest Pain TECHNIQUE: One view of the chest was acquired. COMPARISON: None. FINDINGS: Surgical changes and devices: None. Lungs and pleura: Lungs are clear. No pleural effusions or pneumothorax. Mediastinum: Mediastinal contours appear normal. Heart size is minimally prominent. Bones and chest wall: No suspicious bony lesions. Overlying soft tissues appear unremarkable. IMPRESSION: No acute pulmonary process. Dictated by: Janel Madrid M.D. on 08/05/2025 at 12:26 Approved by: Janel Madrid M.D. on 08/05/2025 at 12:27
--- NOTE | 2025-08-05 11:51 | EKG_ITS ---
[id number] [place] [address] Test Date: 2025-08-05 Pat Name: Blanka Lang Department: [facility] Room: Gender: Female Referral Management Liaison: AUGUSTO : 1960 Requested By: Order Number: [id number] Reading MD: Jose Cornelius Measurements Intervals [place] Rate: 68 P: 46 HI: 146 QRS: 23 QRSD: 88 T: 34 QT: 376 QTc: 399 Interpretive Statements Sinus rhythm with frequent premature ventricular complexes Nonspecific ST abnormality Electronically Signed On 08-09-2025 12:30:31 PST by Jose Cornelius
[2025-08-05 12:06] LABS: Add Manual Diff / Slide Review NO; Hematocrit 34.8 % (36-46); Hemoglobin 11.5 g/dL (12.0-16.0); Lymphocytes Absolute Auto 1400 /uL (1100-4500); Mean Corpuscular HGB Conc 33.1 % (30-36); Mean Corpuscular Hemoglobin 28.4 PG (26-34); Mean Corpuscular Volume 85.9 fL (80-100); Platelet Count 219 X10^3/uL (150-400)
[2025-08-05 12:12] LABS: INR 1.1 (0.9-1.3); Prothrombin Time 11.9 SECONDS (9.4-12.5)
[2025-08-05 12:15] LABS: PTT Partial Thromboplastin Tim 28 SECONDS (25.1-36.5)
[2025-08-05 12:17] LABS: Alanine Aminotransferase 22 IU/L (<35); Albumin 4.5 g/dL (3.5-5.0); Albumin Globulin Ratio 1.6 (1.0-2.8); Alkaline Phosphatase 54 U/L (38-126); Blood Urea Nitrogen 15 mg/dL (7-17); Calcium 9.3 mg/dL (8.4-10.2); Carbon Dioxide 28 mmol/L (22-32); Chloride 106 mmol/L (98-107); Creatine Kinase 47 U/L (30-135); Estimated Glomerular Filt Rate > 60 mL/min (>60); Globulin 2.8 g/dL (1.7-4.1); Glucose 102 mg/dL (70-99); HEMOLYSIS < 15 (0-50); Lipase 107 U/L (23-300); Magnesium 2.1 mg/dL (1.6-2.3); Potassium 4.1 mmol/L (3.4-5.1); Sodium 141 mmol/L (137-145); Total Protein 7.3 g/dL (6.3-8.2)
[2025-08-05 12:28] LABS: NT-proBNP (BNP-Adult 18+) 252 pg/mL (<125); Troponin I < 0.012 ng/mL (0.01-0.034)
--- NOTE | 2025-08-05 12:34 | ED_ITS ---
HPI - Arrhythmia/Palpitations General Chief Complaint: Arrhythmia/Palpitations Stated Complaint: Sent from PCP. Heart palpitations Time Seen by Provider: 08/05/25 12:33 Source: patient Mode of arrival: Ambulatory History of Present Illness HPI narrative: Patient sent here by primary care from the office for palpitations and abnormal EKG. Patient denies any chest pain but has had palpitations daily and frequently for the past 6 weeks. No nausea or sweating. No shortness of breath. No history of coronary disease. Father has history of coronary disease. Patient denies any recent illness. Patient states 3 years ago had a Holter monitor for 30 days and had intermittent atrial fibrillation and was placed on metoprolol no blood thinners. Has still been on metoprolol 25 mg XL daily. EKG today does show intermittent PVCs. Patient states duration no symptoms very sometimes 30 minutes at a time. Sometimes irregular sometimes regular. Related Data Home Medications ?Medication ?Instructions ?Recorded ?Confirmed atorvastatin 10 mg tablet 10 mg PO ONCE PM 08/05/25 Previous Rx's ?Medication ?Instructions ?Recorded metoprolol succinate 25 mg 25 mg PO BID blood pressure #60 08/06/25 tablet,extended release 24 hr tabs Allergies Allergy/AdvReac Type Severity Reaction Status Date / Time No Known Drug Allergies Allergy Verified 03/05/21 09:31 Review of Systems Review of Systems Narrative: GENERAL: Negative chills, fatigue, malaise, fever, sweats. HEENT: Negative sinus pain, ear pain, sore throat RESPIRATORY: Negative dyspnea, cough CARDIOVASCULAR: Negative chest pain, positive palpitations GASTROINTESTINAL: Negative vomiting, nausea, abdominal pain : Negative dysuria, frequency, hematuria MUSCULOSKELETAL: Negative muscle or bony pain SKIN: Negative rash, skin lesions NEUROLOGIC: Negative weakness, numbness ROS Unobtainable: All systems reviewed & are unremarkable except as noted in HPI and below Patient History Medical History (Updated 08/05/25 @ 13:40 by Sai Ambrosio MD) Snoring Obstructive sleep apnea syndrome Excessive daytime sleepiness Family History Father Sleep apnea Insomnia Dementia Social History household members: none Smoking Status: Never smoker alcohol intake: current Smoking Status: Never smoker alcohol intake frequency: a few times a week Exam Narrative Exam Narrative: GENERAL: in no distress, not toxic not dyspneic HEAD: Normocephalic. EYES: Pupils equal round ENT: Mucous membranes moist. NECK: Trachea midline. CARDIOVASCULAR: Regular rate and rhythm RESPIRATORY: Clear to auscultation. Breath sounds equal bilaterally. No wheezes, rales, or rhonchi. GASTROINTESTINAL: Abdomen soft, nontender no peritoneal signs bowel sounds are present. BACK: No flank tenderness. EXTREMITIES: No gross deformities. NEURO: AOx4. Clear speech SKIN: Warm and dry PSYCH: Not anxious, is cooperative Initial Vital Signs Initial Vital Signs: Vital Signs Temperature 97.8 F 08/05/25 11:45 Pulse Rate 70 08/05/25 11:45 Respiratory Rate 16 08/05/25 11:45 Blood Pressure 155/89 H 08/05/25 11:45 Pulse Oximetry 100 08/05/25 11:45 Oxygen Delivery Method Room Air 08/05/25 11:45 Course Orders Ordered: Discontinued Medications Acetaminophen (Acetaminophen 325 Mg Tablet) 650 mg PO Q6H PRN PRN Reason: Fever/Mild Pain (1-3) Last Admin: 08/06/25 05:48 Dose: 650 mg Documented By: Admin: 08/05/25 21:08 Dose: 650 mg Documented By: ROSETTA Aspirin (Aspirin 81 Mg Chew Tab) 324 mg PO NOW ONE Stop: 08/05/25 11:43 Last Admin: 08/05/25 13:38 Dose: Not Given Documented By: GARRY Sodium Chloride (Normal Saline 0.9%) 1,000 mls @ 1,000 mls/hr IV BOLUS ONE Stop: 08/05/25 15:40 Last Infusion: 08/05/25 21:24 Dose: Infused Documented By: Admin: 08/05/25 14:58 Dose: 1,000 mls/hr Documented By: GARRY Vital Signs Vital signs: Vital Signs - 8 hr 08/05/25 11:45 08/05/25 12:59 08/05/25 12:59 Temperature 97.8 F Pulse Rate 70 65 Respiratory Rate 16 Blood Pressure 155/89 H 137/84 Pulse Oximetry 100 97 Oxygen Delivery Method Room Air 08/05/25 13:00 08/05/25 13:30 08/05/25 13:50 Temperature Pulse Rate 65 66 73 Respiratory Rate 21 16 Blood Pressure Pulse Oximetry 95 96 97 Oxygen Delivery Method 08/05/25 13:50 08/05/25 14:00 08/05/25 14:00 Temperature Pulse Rate 63 Respiratory Rate 16 Blood Pressure 167/79 H 145/81 H Pulse Oximetry 96 Oxygen Delivery Method MDM - Arrhythmia/Palpitations Lab Data 08/05/25 11:56 08/05/25 11:56 Labs: Lab Results 08/05/25 08/05/25 08/05/25 Range/Units 11:55 11:56 13:50 WBC 4.2 L (4.5-11.0) X10^3/uL RBC 4.04 (4.0-5.2) X10^6/uL Hgb 11.5 L (12.0-16.0) g/dL Hct 34.8 L (36-46) % MCV 85.9 (80-100) fL MCH 28.4 (26-34) PG MCHC 33.1 (30-36) % RDW 13.8 (11.6-14.8) % Plt Count 219 (150-400) X10^3/uL Neut % (Auto) 54.9 (50-75) % Lymph % (Auto) 33.8 (25-40) % Finney % (Auto) 8.3 (3-14) % Eos % (Auto) 2.0 (2-4) % Baso % (Auto) 1.0 (0-2) % Neut # (Auto) 2300 (3059-6363) /uL Lymph # (Auto) 1400 (7273-4891) /uL Finney # (Auto) 400 (0-900) /uL Eos # (Auto) 100 (0-450) /uL Baso # (Auto) 0 (0-100) /uL PT 11.9 (9.4-12.5) SECONDS INR 1.1 (0.9-1.3) APTT 28 (25.1-36.5) SECONDS Sodium 141 (137-145) mmol/L Potassium 4.1 (3.4-5.1) mmol/L Chloride 106 (98-107) mmol/L Carbon Dioxide 28 (22-32) mmol/L BUN 15 (7-17) mg/dL Creatinine 0.86 (0.52-1.04) mg/dL Estimated GFR > 60 (>60) mL/min BUN/Creatinine Ratio 17.4 (6-22) Glucose 102 H (70-99) mg/dL Calcium 9.3 (8.4-10.2) mg/dL Magnesium 2.1 (1.6-2.3) mg/dL Total Bilirubin 0.5 (0.2-1.3) mg/dL AST 25 (14-36) IU/L ALT 22 (<35) IU/L Alkaline Phosphatase 54 (38-126) U/L Total Creatine Kinase 47 (30-135) U/L Troponin I < 0.012 < 0.012 (0.01-0.034) ng/mL NT-Pro-B Natriuret Pep 252 H (<125) pg/mL Total Protein 7.3 (6.3-8.2) g/dL Albumin 4.5 (3.5-5.0) g/dL Globulin 2.8 (1.7-4.1) g/dL Albumin/Globulin Ratio 1.6 (1.0-2.8) Lipase 107 (23-300) U/L TSH 1.09 (0.47-4.68) uIU/mL Imaging Data Chest x-ray: Radiologist's Impresson: [place] [id number] XRay Report Signed Patient: Blanka Lang MR#: [id number] : 1960 Acct:[id number] Age/Sex: 65 / F Date of Service: 08/05/25 Loc: ED Accession Number: [id number] Procedure: XR chest 1V Ordering Provider: Sai Ambrosio MD PROCEDURE: XR CHEST 1V INDICATIONS: Chest Pain TECHNIQUE: One view of the chest was acquired. COMPARISON: None. FINDINGS: Surgical changes and devices: None. Lungs and pleura: Lungs are clear. No pleural effusions or pneumothorax. Mediastinum: Mediastinal contours appear normal. Heart size is minimally prominent. Bones and chest wall: No suspicious bony lesions. Overlying soft tissues appear unremarkable. IMPRESSION: No acute pulmonary process. Dictated by: Janel Madrid M.D. on 08/05/2025 at 12:26 Approved by: Janel Madrid M.D. on 08/05/2025 at 12:27 MDM Narrative Medical decision making narrative: Patient sent here by primary care from the office for palpitations and abnormal EKG. Patient denies any chest pain but has had palpitations daily and frequently for the past 6 weeks. No nausea or sweating. No shortness of breath. No history of coronary disease. Father has history of coronary disease. Patient denies any recent illness. Patient states 3 years ago had a Holter monitor for 30 days and had intermittent atrial fibrillation and was placed on metoprolol no blood thinners. Has still been on metoprolol 25 mg XL daily. EKG today does show intermittent PVCs. Patient states duration no symptoms very sometimes 30 minutes at a time. Sometimes irregular sometimes regular. 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 Pertinent findings: WBC is 4.2 hemoglobin 11.5 INR 1.1 sodium 141 potassium 4.1 BUN 15 creatinine 0.86 troponin less than 0.012 BNP 252 Independently reviewed EKG sinus rhythm with frequent PVCs rate 68 Imaging studies independently reviewed: Chest x-ray no acute finding Consultations: 2:12 p.m.. I spoke with Cardiology, [facility] on-call, Dr. Jernigan, recommends admission for a stress test and echocardiogram 2:42 p.m.. I spoke with Dr. Obando, she will admit patient. She would like CT chest before transferring to the floor. Re-evaluations: 2:20 p.m.. Updated patient recommendation from Cardiology for admission. She agrees. Currently still has PVCs but asymptomatic Discussion: Appropriate for admission. Cardiology service was contacted. Recommends admission for nuc med stress test and echocardiogram Diagnosis: Atypical chest pain/palpitations Discharge Plan Departure Patient Disposition: Admitted as Observation Clinical Impression: Palpitations Admit Date/Time: 08/05/25 14:41 Admit Provider: Alyce Obando
[2025-08-05 13:39] LABS: Thyroid Stimulating Hormone 1.09 uIU/mL (0.47-4.68)
--- NOTE | 2025-08-05 14:13 | DI.ECHO.S_ITS ---
[place] [facility] : : [address] : [place] [address] : : [id number] : : Phone: [phone] Echocardiogram Report + + :Name: ALLA GLASS Study Date: 08/05/2025 Height: 67 in : :Hospital ReadingLocation: Weight: 163 lb : : Gender: Female BSA: 1.9 m2 : :: 1960 Age: 65 yrs BP: 145/81 mmHg: :Reason For Study: CHEST PAIN : :Ordering Physician: TINO, : :MAXIMO Performed By: Jules Diehl : :Referring: MAXIMO JIMÉNEZ : + + Interpretation Summary 1) Normal left ventricular thickness, size, wall motion and systolic function (EF 55-60%). 2) Normal right ventricular size and function. 3) No significant valvular abnormalities. 4) Compared to the Echo done 09/01/2022, no significant change. Procedure: A two-dimensional transthoracic echocardiogram with color flow and Doppler was performed. A contrast injection of Definity was performed to improve assessment for apical thrombus. The study quality was technically adequate. Comparison is made with the echocardiogram of 09/01/2022. The patient was in atrial fibrillation with heart rates between 62-79 bpm during the exam. Left Ventricle: The left ventricle is normal in size. There is normal left ventricular wall thickness. There is no ventricular septal defect visualized. The ejection fraction is estimated to be 55-60%. There are no focal wall motion abnormalities. Diastolic function could not be accurately assessed due to atrial fibrillation. Right Ventricle: The right ventricle is normal in size and function. Atria: The left atrium is moderately dilated. Right atrial size is normal. There is no Doppler evidence for an interatrial shunt. Mitral Valve: The mitral valve leaflets appear normal. There is no evidence of stenosis, fluttering, or prolapse. There is trace mitral regurgitation. Aortic Valve: The aortic valve is grossly normal. There is no aortic valve stenosis. No aortic regurgitation is present. Tricuspid Valve: The tricuspid valve leaflets are thin and pliable. There is trace tricuspid regurgitation. Pulmonary artery pressures cannot be estimated because of the lack of a measurable TR jet velocity. Pulmonic Valve: The pulmonic valve is not well seen, but is grossly normal. There is no pulmonic valvular regurgitation. Great Vessels: The aortic root is borderline dilated. The ascending aorta is at the upper limits of normal in size. The pulmonary artery is not well visualized, but is probably normal size. The IVC is of normal diameter and collapses greater than 50% with a sniff. This suggests a low right atrial pressure of 3 mm Hg. Pericardium/ Pleura There is no pericardial effusion. There is no pleural effusion. MMode/2D Measurements & Calculations LVIDd: 4.6 cm LVOT diam: 2.1 cm LVIDs: 3.3 cm Ao root diam: 3.9 cm FS: 28.0 % asc Aorta Diam: 3.9 cm EPSS: 0.55 cm Ao Arch Diam (Prox Trans): 1.8 cm IVSd: 1.2 cm LVPWd: 0.99 cm LV mike. diameter/BSA (cm/m^2): 2.5 LV sys. diameter/BSA (cm/m^2): 1.8 LA A2 area: 19.1 cm2 RA long axis: 4.2 cm LA A4 area: 19.4 cm2 RA area: 14.2 cm2 LA length (vol): 4.8 cm RA vol: 40.4 ml LA vol: 64.9 ml RA : 21.8 ml/m2 LA vol index: 35.0 ml/m2 IVC diam: 1.6 cm RVD1 (basal): 3.9 cm RVD2 (mid): 2.6 cm TAPSE: 2.6 cm Doppler Measurements & Calculations Ao V2 max: 122.5 cm/sec LVOT Max Cristino: 90.4 cm/sec Ao V2 mean: 85.0 cm/sec LV V1 max P.3 mmHg Ao max P.0 mmHg LV V1 VTI: 22.7 cm Ao mean P.2 mmHg KANA(I,D): 3.2 cm2 Ao V2 VTI: 24.9 cm KANA(V,D): 2.6 cm2 sev ratio: 0.91 KANA indexed to BSA (cm^2/m^2): 1.7 MV E max cristino: 54.5 cm/sec TR max cristino: 244.6 cm/sec MV A max cristino: 60.1 cm/sec TR max P.9 mmHg MV E/A: 0.91 PA V2 max: 96.2 cm/sec Med Peak E' Cristino: 5.1 cm/sec PA V2 mean: 69.6 cm/sec E/E' med: 10.7 PA mean P.1 mmHg Lat Peak E' Cristino: 6.6 cm/sec PA pr(Accel): 60.2 mmHg E/E' lat: 8.3 E/e' average: 9.5 MV dec time: 0.22 sec SV(LVOT): 79.2 ml Reading Physician:06:04 PM
[2025-08-05 14:20] LABS: Troponin I < 0.012 ng/mL (0.01-0.034)
--- NOTE | 2025-08-05 14:41 | DI.CT.S_ITS ---
PROCEDURE: CT ANGIO CHEST PE PROTOCOL INDICATIONS: Chest pain TECHNIQUE: After the administration of intravenous contrast, 2 mm thick sections acquired from the pulmonary apices to the posterior costophrenic angles. 3-dimensional maximum intensity projection (MIP) coronal and sagittal reformats were then acquired through the thorax. For radiation dose reduction, the following was used: automated exposure control, adjustment of mA and/or kV according to patient size. COMPARISON: None. FINDINGS: Image quality: Diagnostic. Pulmonary arteries: Pulmonary arteries are normal in size, and demonstrate no intraluminal filling defects to suggest central pulmonary embolism. Lower Neck: No enlarged lymph nodes. Thyroid: No thyroid nodules which require sonographic follow up, per consensus guidelines. Axillae: No enlarged lymph nodes. Chest Wall: Unremarkable. Bones: Unremarkable. Lungs and Pleura: No pneumothorax or pleural effusions. No consolidation or suspicious nodules. Heart: Heart size is normal. No pericardial effusion. Thoracic Vessels: No aortic aneurysm. Mediastinum and Courtney: No enlarged lymph nodes. Esophagus: No wall thickening. No hiatal hernia. Upper Abdomen: Visualized upper abdomen solid organs and bowel loops appear normal. IMPRESSION: No pulmonary embolus. No acute cardiopulmonary process. Dictated by: Kong Mccann M.D. on 08/05/2025 at 15:03 Approved by: Kong Mccann M.D. on 08/05/2025 at 15:05
--- NOTE | 2025-08-05 14:43 | PC.NURSE ---
Per Diagnostic imaging patient is to not have any caffeine until their stress test tomorrow morning. They can eat up until midnight than they are to be NPO from midnight on. However, DI states water is OKAY. Provider Hebert guzman and kiln charger Falon made aware.
[2025-08-05] MEDS: SODIUM CHLORIDE 0.9% 1,000 ML 1000 ML IV (14:58)
--- NOTE | 2025-08-05 18:05 | P.HP_ITS ---
History of Present Illness History of Present Illness Date Patient Seen: 08/05/25 Date of Onset of Symptoms: 08/05/25 Chief complaint: Sent from PCP. Heart palpitations Narrative: This is a very pleasant female who is under the primary care of Dr. Laxmi draper. She was seen in the clinic today and was having palpitations with some mild discomfort associated with this and EKG was done and she was sent to the ER for further evaluation. She was found to have bigeminy and trigeminy and the ER physician discussed with the radiation control technician who recommended that she be admitted overnight and have cardiac workup including an echo and a stress test. She would 2 troponins that were negative and a negative chest x-ray another negative CT angio for PE or thoracic aneurysm and she was admitted to the hospital on telemetry. Patient was only given an aspirin. She did not have any chest pain when she was in the ER palpitations were more frequent when she was exerting herself. Patient denies any chest pain but has had palpitations daily and frequently for the past 6 weeks. No nausea or sweating. No shortness of breath. No history of coronary disease. Father has history of coronary disease. Patient denies any recent illness. Patient states 3 years ago had a Holter monitor for 30 days and had intermittent atrial fibrillation and was placed on metoprolol no blood thinners. She previously saw Dr. Fernandez, cardiology but has not seen him since September of 2022 for unknown reason. She was placed on metoprolol and magnesium and was not placed on anticoagulation because of a low Daryl score. Has still been on metoprolol 25 mg XL daily. EKG today does show intermittent PVCs. Patient states duration no symptoms very sometimes 30 minutes at a time. Sometimes irregular sometimes regular. Past medical history: P AFib found on Holter monitor and place on metoprolol Obstructive sleep apnea patient states this diagnosis was distant and she does not snore and does not feel she has a problem is not being treated Hyperlipidemia Essential hypertension Chronic kidney disease stage 3 a Osteoporosis Allergies no known drug allergies Family history: Patient has 3 aunts and her mother with type 2 diabetes Father had coronary artery disease Health related behavior: Patient does not smoke never has Patient uses occasional alcohol 12 point review of system is negative for rash, fever, cough, shortness a breath, chest pain, decreased exercise tolerance, PND orthopnea Negative for any GI symptoms [facility] Medical History (Updated 08/05/25 @ 13:40 by Sai Ambrosio MD) Snoring Obstructive sleep apnea syndrome Excessive daytime sleepiness Family History Father Sleep apnea Insomnia Dementia Social History household members: none Smoking Status: Never smoker alcohol intake: current Meds Home Medications and Allergies Home Medications ?Medication ?Instructions ?Recorded ?Confirmed ?Type atorvastatin 10 mg tablet 10 mg PO ONCE PM 08/05/25 History metoprolol succinate 25 mg 25 mg PO BEDTIME blood pres sure 08/05/25 08/05/25 History tablet,extended release 24 hr Allergies Allergy/AdvReac Type Severity Reaction Status Date / Time No Known Drug Allergies Allergy Verified 03/05/21 09:31 Exam Vital Signs (past 8 hours): - 08/05/25 11:45 08/05/25 12:59 08/05/25 12:59 Temperature 97.8 F Pulse Rate 70 65 Respiratory Rate 16 Blood Pressure 155/89 H 137/84 Pulse Oximetry 100 97 Oxygen Delivery Method Room Air Oxygen Flow Rate 08/05/25 13:00 08/05/25 13:30 08/05/25 13:50 Temperature Pulse Rate 65 66 73 Respiratory Rate 21 16 Blood Pressure Pulse Oximetry 95 96 97 Oxygen Delivery Method Oxygen Flow Rate 08/05/25 13:50 08/05/25 14:00 08/05/25 14:00 Temperature Pulse Rate 63 Respiratory Rate 16 Blood Pressure 167/79 H 145/81 H Pulse Oximetry 96 Oxygen Delivery Method Oxygen Flow Rate 08/05/25 14:30 08/05/25 14:31 08/05/25 14:31 Temperature Pulse Rate 66 69 Respiratory Rate 21 16 Blood Pressure 153/122 H Pulse Oximetry 97 97 Oxygen Delivery Method Oxygen Flow Rate 08/05/25 15:00 08/05/25 15:01 08/05/25 15:01 Temperature Pulse Rate 70 70 Respiratory Rate 24 22 Blood Pressure 168/121 H Pulse Oximetry 99 98 Oxygen Delivery Method Oxygen Flow Rate 08/05/25 15:30 08/05/25 15:30 08/05/25 17:12 Temperature 97.2 F L Pulse Rate 67 71 Respiratory Rate 17 16 Blood Pressure 172/106 H 140/94 H Pulse Oximetry 98 100 Oxygen Delivery Method Oxygen Flow Rate 0 Oxygen Delivery Method Room Air Oxygen Flow Rate 0 Narrative Exam Narrative: Afebrile vital signs are stable HEENT is unremarkable Neck is supple without adenopathy or thyromegaly or jugular venous distention Chest: Clear to auscultation without wheezes rhonchi or crackles Cor: Regular rate and rhythm without a murmur, occasional ectopy Abdomen positive bowel sounds soft Extremities no edema pulses intact Skin no rashes Neurologic exam nonfocal Objective Labs 08/05/25 11:56 08/05/25 11:56 Labs: Laboratory Results - last 24 hr 08/05/25 08/05/25 08/05/25 11:55 11:56 13:50 WBC 4.2 L RBC 4.04 Hgb 11.5 L Hct 34.8 L MCV 85.9 MCH 28.4 MCHC 33.1 RDW 13.8 Plt Count 219 Neut % (Auto) 54.9 Lymph % (Auto) 33.8 Early % (Auto) 8.3 Eos % (Auto) 2.0 Baso % (Auto) 1.0 Neut # (Auto) 2300 Lymph # (Auto) 1400 Early # (Auto) 400 Eos # (Auto) 100 Baso # (Auto) 0 PT 11.9 INR 1.1 APTT 28 Sodium 141 Potassium 4.1 Chloride 106 Carbon Dioxide 28 BUN 15 Creatinine 0.86 Estimated GFR > 60 BUN/Creatinine Ratio 17.4 Glucose 102 H Calcium 9.3 Magnesium 2.1 Total Bilirubin 0.5 AST 25 ALT 22 Alkaline Phosphatase 54 Total Creatine Kinase 47 Troponin I < 0.012 < 0.012 NT-Pro-B Natriuret Pep 252 H Total Protein 7.3 Albumin 4.5 Globulin 2.8 Albumin/Globulin Ratio 1.6 Lipase 107 TSH 1.09 Assessment & Plan Assessment & Plan narrative: 65-year-old female with palpitations workup in the ER revealed negative troponins x2, negative chest x-ray and frequent PVCs that worsened with ambulation. Cardiology was contacted and it was recommended that patient be admitted for stress test and echo. Assessment 1. Frequent PVCs with history of P AFib, 3 years ago Plan: Will admit to the hospital for observation and further workup Echo ordered Stress MIBI in a.m. Pending these results will do outpatient Holter monitor and follow up with Cardiology Will hold metoprolol overnight due to stress testing Magnesium normal will continue with same outpatient dosing 400 mg magnesium oxide daily Assessment 2. Hyperlipidemia Plan: Continue outpatient atorvastatin Assessment 3. Hypertension on metoprolol, may need increase on this or addition of another medication. Assessment 4. Neutropenia mild relatively new Plan will follow Assessment 5. Reported history of obstructive sleep apnea Plan: Encouraged workup as outpatient Code status is full code 76 minutes was spent with the patient in discussing with ER physician, nursing, meeting with patient and reviewing her clinic chart and hospital chart and formulating a plan and documentation Time-Based Coding :: [TOTAL MINUTES] spent with patient and on the chart (including review of chart, obtaining history, exam, reviewing outside data, placing orders, documenting exam and treatment plan, and counseling patient) on [DATE]. Quality VTE Deep Vein Thrombosis/Pulmonary Embolism Present on Admission: No
[2025-08-05] MEDS: ACETAMINOPHEN 325 MG TABLET 650 MG PO (21:08)
[2025-08-06] VITALS: BP 125/69; PULSE 70; RESP 16; TEMP 36.1; O2SAT 98
[2025-08-06 04:00] VITALS: BP 101/64; PULSE 75; RESP 16; O2SAT 98
[2025-08-06] MEDS: ACETAMINOPHEN 325 MG TABLET 650 MG PO (05:48)
[2025-08-06 07:36] VITALS: BP 130/92; PULSE 68; RESP 16; TEMP 36.8; O2SAT 98
--- NOTE | 2025-08-06 08:38 | PC.NURSE ---
Addendum entered by Melia Byers RN 08/06/25 13:53: Pt escorted w/ staff to waiting vehicle. D/C in stable status Addendum entered by Melia Byers RN 08/06/25 13:38: Second part of test complete. Orders for D/C received. Sl D/C intact, Home instructions given w/understanding. Addendum entered by Melia Byers RN 08/06/25 11:24: To second portion of stress test at 1120 Addendum entered by Melia Byers RN 08/06/25 10:58: Pt went for first portion of stress test and will be going for part 2 at 1115 Denies any issues, Tele shows SR per ICU staff. Call light w/in reach, bed alarm pt calls appropriately for needs Original Note: Pt independent in room. Denies any discomfort, Has been NPO since last evening. Awaiting stress test. Call light w/in reach, pt calls appropriately for needs.
[2025-08-06 11:00] VITALS: BP 132/80; PULSE 70; RESP 18; TEMP 36.7; O2SAT 98
--- NOTE | 2025-08-06 13:33 | PM.DS.1 ---
History of Present Illness History of Present Illness Date Patient Seen: 08/06/25 Time Patient Seen: 13:33 Chief complaint: Sent from PCP. Heart palpitations Narrative: This is a very pleasant female who is under the primary care of Dr. Laxmi draper. She was seen in the clinic today and was having palpitations with some mild discomfort associated with this and EKG was done and she was sent to the ER for further evaluation. She was found to have bigeminy and trigeminy and the ER physician discussed with the tmd teacher who recommended that she be admitted overnight and have cardiac workup including an echo and a stress test. She would 2 troponins that were negative and a negative chest x-ray another negative CT angio for PE or thoracic aneurysm and she was admitted to the hospital on telemetry. Patient was only given an aspirin. She did not have any chest pain when she was in the ER palpitations were more frequent when she was exerting herself. Patient denies any chest pain but has had palpitations daily and frequently for the past 6 weeks. No nausea or sweating. No shortness of breath. No history of coronary disease. Father has history of coronary disease. Patient denies any recent illness. Patient states 3 years ago had a Holter monitor for 30 days and had intermittent atrial fibrillation and was placed on metoprolol no blood thinners. She previously saw Dr. Fernandez, cardiology but has not seen him since September of 2022 for unknown reason. She was placed on metoprolol and magnesium and was not placed on anticoagulation because of a low Daryl score. Has still been on metoprolol 25 mg XL daily. EKG today does show intermittent PVCs. Patient states duration no symptoms very sometimes 30 minutes at a time. Sometimes irregular sometimes regular. Past medical history: P AFib found on Holter monitor and place on metoprolol Obstructive sleep apnea patient states this diagnosis was distant and she does not snore and does not feel she has a problem is not being treated Hyperlipidemia Essential hypertension Chronic kidney disease stage 3 a Osteoporosis Allergies no known drug allergies Family history: Patient has 3 aunts and her mother with type 2 diabetes Father had coronary artery disease Health related behavior: Patient does not smoke never has Patient uses occasional alcohol 12 point review of system is negative for rash, fever, cough, shortness a breath, chest pain, decreased exercise tolerance, PND orthopnea Negative for any GI symptoms Discharge Providers Provider Date of admission: 08/05/25 14:41 Discharge Date: 08/06/25 Primary care physician: Nya Draper MD Discharge provider: Alyce Obando MD Summary Hospital Course Discharge Diagnosis: PVCs Palpitations Hypertension Hyperlipidemia Hospital Course: Patient was seen by her PCP yesterday with palpitations and was sent to the ER. Workup in the ER was entirely normal with a normal chest x-ray normal CT angiogram normal EKG other than PVCs negative troponins x2 but Cardiology was consulted from the ER and Dr. King while recommended that she be admitted and have a stress MIBI an echo. These were completed these were normal low risk stress test with hypertensive response to exercise but patient was off her beta-meka due to the stress test and echo it was entirely normal and patient had no a arrhythmia over night had no other problems or concerns and patient was discharged home on hospital day 2. In stable condition Discharge follow up: Will see [facility] as outpatient to be arranged by PCP Needs referral to sleep specialist due to distant history of obstructive sleep apnea Needs follow up with PCP next week Needs outpatient ZIO patch for 2 weeks We will continue outpatient medications except metoprolol will be increased from 25 mg once a day to 25 mg twice a day Status at Discharge Cognitive/behavioral status at discharge: at baseline, oriented Functional status at discharge: independent ambulation Overall status at discharge: patient is back to baseline Exam Vital Signs (past 8 hours): - 08/06/25 07:36 08/06/25 11:00 Temperature 98.3 F 98.1 F Pulse Rate 68 70 Respiratory Rate 16 18 Blood Pressure 130/92 H 132/80 Pulse Oximetry 98 98 Oxygen Delivery Method Room Air Oxygen Flow Rate 0 Narrative Exam Narrative: Afebrile vital signs are stable HEENT is unremarkable Neck is supple without adenopathy Chest: Clear to auscultation without wheezes rhonchi or crackles Cor: Regular rate and rhythm Extremities no edema Objective Labs 08/05/25 11:56 08/05/25 11:56 Labs: Laboratory Results - last 24 hr 08/05/25 08/05/25 11:55 13:50 Troponin I < 0.012 TSH 1.09 PFSH Medical History (Updated 08/05/25 @ 13:40 by Sai Ambrosio MD) Snoring Obstructive sleep apnea syndrome Excessive daytime sleepiness Family History Father Sleep apnea Insomnia Dementia Social History household members: none Smoking Status: Never smoker alcohol intake: current Discharge Assessment & Plan Assessment and Plan Assessment: PVCs Palpitations Hypertension Hyperlipidemia Plan of Treatment: Patient was seen by her PCP yesterday with palpitations and was sent to the ER. Workup in the ER was entirely normal with a normal chest x-ray normal CT angiogram normal EKG other than PVCs negative troponins x2 but Cardiology was consulted from the ER and Dr. King while recommended that she be admitted and have a stress MIBI an echo. These were completed these were normal low risk stress test with hypertensive response to exercise but patient was off her beta-meka due to the stress test and echo it was entirely normal and patient had no a arrhythmia over night had no other problems or concerns and patient was discharged home on hospital day 2. In stable condition Discharge follow up: Will see [facility] as outpatient to be arranged by PCP Needs referral to sleep specialist due to distant history of obstructive sleep apnea Needs follow up with PCP next week Needs outpatient ZIO patch for 2 weeks We will continue outpatient medications except metoprolol will be increased from 25 mg once a day to 25 mg twice a day 40 minutes was spent in discharge care including discussing with Cardiology, nursing, meeting with the patient and her daughter and formulating a plan and documentation Discharge Plan Discharge Plan Patient Disposition: Home Discharge orders & Medications Prescriptions: Continued atorvastatin 10 mg tablet 10 mg PO ONCE PM Changed metoprolol succinate 25 mg tablet extended release 24 hr 25 mg PO BID Qty: 60 0RF Follow up/Referrals: Nya Draper MD [Primary Care Provider, Family Practice] Diet/Activity/Treatments Diet: Diet as Tolerated Visit Report/Discharge Packet Stand Alone Forms: Patient Portal/API, Stroke Signs & Symptoms Discharge Data Primary Care Provider: Nya Draper Attending Provider: Alyce Obando Admit Date/Time: 08/05/25 14:41 Quality VTE Deep Vein Thrombosis/Pulmonary Embolism Present on Admission: No
--- NOTE | 2025-08-06 14:54 | CM.DANOTE ---
Inital DCP Assessment Visit Note Reviewed EMR and team rounds for pt's medical needs and updates. Met with pt and dtr to introduce self and role, pt was found to be alert/oriented, dressed, and ready to d/c back home. Pt resides independently in her own home, she has a local dtr that lives in [place], and a second dtr that lives in [place]. Dtr was available to transport her home earlier this afternoon. No CM d/c needs were identified during her stay. Payor: Medicare PCP: Dr. Velazquez Pt is a 65 year-old pt who presented to the ED b PCP after she was found to have heart palpitations and an abnormal EKG in their office yesterday. She was otherwise stable, and asymptomatic once she arrived in the ED. Cardiology was consulted, and the plan was made to admit pt to [facility] for a nuclear stress-test and ECHO in the am. ECHO was not abnormal, pt was f/u with PCP for post-hospitalization f/u eval. Discharge Planning/Care Management CM Discharge Assessment Start: 08/05/25 15:00 Freq: Status: Discharge Protocol: Document 08/06/25 14:53 DPL (Rec: 08/06/25 14:54 DPL [id number]) Discharge Planning Assessment Assigned Discharge MEÑO [place] General Manager [employer] Provider Dr. Velazquez Insurance Medicare Advance Directives? Yes Advance Directives No on File History Provided By Patient,Medical Record Has Patient been No admitted in last 30 days? Prior Living House Arrangements Household Members none Type of Drives own vehicle transporation used prior to admit Independent with ADL Yes 's Is patient alert and Yes oriented? Caregiver for No Another Comment N/A Comment No identified home d/c needs at this time. Barriers to No Discharge Discharge Plan Home Referrals Initiated None needed Review Status In Process Please Provide Date 08/06/25 Initial DC Assessment Was Performed
--- NOTE | 2025-08-06 15:06 | DI.NM.S_ITS ---
DATE OF SERVICE: 08/06/2025 EXERCISE PERFUSION STUDY INDICATION: Symptomatic PVCs. RADIOPHARMACEUTICAL: 27.3 millicurie technetium-99m Myoview IV was injected at stress and 11.1 millicurie technetium-99m Myoview IV was injected at rest. CARDIAC STRESS: The patient underwent exercise perfusion study under the supervision of an attending staff. The patient walked on Mark protocol for 7 minutes and 25 seconds, achieved maximum heart rate of 152, which was 99% of target heart rate. Resting blood pressure 122/86 and peak blood pressure 204/100 suggestive of hypertensive blood pressure response. CONCEPCION -22%. 7.25 METS of workload. Baseline rhythm sinus with intermittent PVCs and almost QS complexes in lead L3 and AVF. During stress no bursting PVCs, in fact PVCs got suppressed. Occasional PACs. No significant ischemic changes. No ventricular tachycardia. Normal recovery. RAW DATA: There is increased subdiaphragmatic activity. GATED STUDY: Stress LV ejection fraction 69% without any obvious wall motion abnormalities. Resting end-diastolic volume 87 mL. TID ratio 0.91, which is within normal limits. MYOCARDIAL PERFUSION SCAN: Stress supine, resting supine and stress prone images were compared to each other. Stress supine and resting supine images revealed minimally decreased perfusion of inferior apex which got resolved during stress prone images suggestive of tissue attenuation artifact. No obvious ischemia infarction pattern seen. CONCLUSION: This is a normal myocardial perfusion study with evidence of tissue attenuation artifact which got resolved during stress prone images. Fair exercise tolerance. Hypertensive blood pressure response. Baseline PVCs which got suppressed during exercise. Preserved LV function. No chest pain. Overall, low-risk exercise perfusion study. Blanka Lang - MIHIR/marcelo/TAMARA doc#: [id number]/job#: [id number] dd: 08/06/2025 12:55:00 dt: 08/06/2025 14:58:00 DICTATING MD/COPIES TO: Kimberly Jernigan MD COPIES MNE: MAXI;
== END 2025-08-06 13:54 | disposition home or self-care (01) ==
LOC: ED 14:17 → AC 14:41
PROVIDERS: Admitting Provider Family Medicine; Emergency Provider Emergency Medicine; Family Provider Internal Medicine; PCP Family Medicine; Referring Provider Emergency Medicine; Visit Provider Family Medicine
DX: I49.3 Ventricular premature depolarization (principal); R00.2 Palpitations; R07.9 Chest pain, unspecified; D70.9 Neutropenia, unspecified; I48.0 Paroxysmal atrial fibrillation; E78.5 Hyperlipidemia, unspecified; I12.9 Hypertensive chronic kidney disease with stage 1 through stage 4 chronic kidney disease, or unspecified chronic kidney disease; N18.31 Chronic kidney disease, stage 3a; M81.0 Age-related osteoporosis without current pathological fracture; G47.33 Obstructive sleep apnea (adult) (pediatric); Z83.3 Family history of diabetes mellitus; Z82.49 Family history of ischemic heart disease and other diseases of the circulatory system
CPT/HCPCS: 36415; 71045; 71275; 78452; 80053; 82550; 83690; 83735; 83880; 84443; 84484; 85025; 85610; 85730; 93005; 93017; 99284; G0378; A9502; C8929; J7030; Q9957; Q9967